=== PATIENT | male | born 1980 | race Caucasian/White ===

== ENCOUNTER → 2017-08-09 13:02 | Outpatient (CLI) | payer OTHER, SELFPAY ==
[2017-08-09 14:10] LABS: Microalbumin,Random Urine 15.9 mg/L (NO RANGE EST.); Microalbumin:Creatinine Ratio 8.5 mg/g CRE (<30 mg/g CRE)
[2017-08-09 14:22] LABS: ALB/GLOB Ratio 1.1 RATIO (0.9-2.4); AST(SGOT) 27 U/L (15-37); Alanine Aminotransfer ALT/SGPT 55 U/L (16-61); Albumin, Serum 4.2 g/dL (3.2-5.0); Alkaline Phosphatase 103 U/L (45-117); Anion Gap 6 (5-15); BUN 14 mg/dL (7-18); BUN/Creat Ratio 18.4 RATIO (10-20); Chloride 102 mmol/L (98-107); Cholesterol 187 mg/dL (200); Creatinine, Serum 0.76 mg/dL (0.70-1.30); EST Glomerular Filtration Rate 123 mL/min (>60); Est Glom Filt Rate - Afr Amer 149 mL/min (>60); Globulin 3.8 g/dL (2.2-4.2); Glucose 87 mg/dL (74-106); High Density Lipoprotein 43 mg/dL; Potassium 3.8 mmol/L (3.5-5.1); Sodium Level 138 mmol/L (136-145); Triglycerides 130 mg/dL; Very Low Density Lipoprotein 26 mg/dL (5-40)
== END ==
PROVIDERS: Family Provider Family Medicine; PCP Family Medicine; Visit Provider Family Medicine
DX: I10 Essential (primary) hypertension (principal)
CPT/HCPCS: 36415; 80053; 80061; 82043; 82570

== ENCOUNTER 2018-02-19 15:00 | Outpatient (RCR) | payer OTHER, SELFPAY ==
--- NOTE | 2018-01-30 14:59 | HP.PTEVAL_ITS ---
Patient's Visit Information AV PEREZ is a 37 year old M referred to Physical Therapy by Nica Mcgovern MD with a diagnosis of Cervical radiculopathy. Date of Evaluation: 01/30/18 Physical Therapist: James Todd - Visit Plan Frequency: 2x /Week Duration: 4 Weeks Plan: Start with distraction/mechanical traction, postural education, Tate exercises as tolerated. Progress to postural strengthening once symptoms have reduced. - Subjective Subjective: Pt. is here today for his initial evaluation with diagnosis of cervical radiculopathy radiating down his L arm. He reports having an injury ~ 8 weeks ago when lifting a large molding at work. Pt. reports seeing a chiropractor for 6 weeks or so, but did not make a huge difference. Pt. reports mornings are not too bad. He is taking 600mg of ibuprohen. He reports doing not much at home due to his neck/arm injury. He reports having improved symptoms since starting his new medications. Pt. reports no weakness, he is not dropping any objects, but has greatest difficulty with looking up and with lifting objects due to increased pain. Pt. reports N/T radiating down to forearm, but not any further. Pt. has decreased symptoms with supine lying. He is hopeful to reduce symptoms in order to complete all recreational and work activities without limitations. - Pain L UE Pain Intensity (Out of 10): 3 Pain Intensity Range: 1, 4 Comment: Tingling - Objective POSTURE: Pt. has forward head posture, rounded shoulders and decrased lumbar lordosis. Pt. has normal shoulder heights. PALPATION: Pt. has normal sensation throughout bilateral shoulders and UT. Pt. has mild tenderness with L side of cervical erector spinea. Pt. has increased pain in neck and LUE with spring testing to C3/C4. Pt. has hypombility noted there as well. No issues with rest of cervical spine. ROM: CERVICAL SPINE: normal ROM throughout, but min/mod loss with extension and increased symptoms. Pt. has increased pain with cervicle retraction as well. Pt. has normal B shoulder ROM without increase in symptoms. MMT: Pt. has full B shoulder stregth, except shoulder abduction 4+/5. Elbow flexion 4+/5, 5/5 ext. Normal wrist strength. 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- RUE- 125#, LUE 95# - Special Tests C/S Radiculapathy - Left Spurlings: Negative C/S Radiculapathy - Right Spurlings: Positive C/S Radiculapathy - Left Relief test: Positive Sharp Angelina: Negative Vertebral Artery Test: Negative Alar Ligament Test: Negative Cervical Sitting: Protrusion - Mechanical Response: No effect Cervical Sitting: Protrusion - Symptoms During Testing: No effect Cervical Sitting: Protrusion - Symptoms After Testing: No effect Cervical Sitting: Retraction - Mechanical Response: No effect Cervical Sitting: Retraction - Symptoms During Testing: Increases Cervical Sitting: Retraction - Symptoms After Testing: No worse Cervical Sitting: Retraction-Extension - Mechanical Response: No effect Cerv Sitting: Retraction-Extension - Symptoms During Testing: Increases Cerv Sitting: Retraction-Extension - Symptoms After Testing: No worse Cervical Sitting: Sidebend Right - Mechanical Response: No effect Cervical Sitting: Sidebend Right - Symptoms During Testing: No effect Cervical Sitting: Sidebend Right - Symptoms After Testing: No effect Cervical Sitting: Sidebend Left - Mechanical Response: No effect Cervical Sitting: Sidebend Left - Symptoms During Testing: No effect Cervical Sitting: Sidebend Left - Symptoms After Testing: No effect Cervical Sitting: Rotation Right - Mechanical Response: No effect Cervical Sitting: Rotation Right - Symptoms During Testing: No effect Cervical Sitting: Rotation Right - Symptoms After Testing: No effect Cervical Sitting: Rotation Left - Mechanical Response: No effect Cervical Sitting: Rotation Left - Symptoms During Testing: No effect Cervical Sitting: Rotation Left - Symptoms After Testing: No effect Cervical Sitting: Flexion - Mechanical Response: No effect Cervical Sitting: Flexion - Symptoms During Testing: No effect Cervical Sitting: Flexion - Symptoms After Testing: No effect - Goals Goal 1:: Pt. to be I with HEP. Goal Time Frame: 4-6 Weeks Goal 2:: Pt. to have increased cervical ext to normal without increase in symptoms. Goal Time Frame: 4-6 Weeks Goal 3:: Pt. to have reduced neck and arm symptoms by 50% allowing for increased tolerance to all functional mobility. Goal 4:: Pt. to demonstrate proper posture throughout therapy session indicating increased postural awareness. Goal Time Frame: 4-6 Weeks Goal 5:: Pt. to complete all recreational and work activities without increase in symptoms. Goal Time Frame: 4-6 Weeks - Rehabilitation Potential Physical Therapy Diagnosis: Pt. has signs and symptoms consistent with cervical radiculopathy effecting his LUE. Pt. has symptoms radiating to L forearm frequently, but did have decreased symptoms with distraction and supine lying. Pt. would benefit from PT to focus on postural control, cervical ROM, Tate exercises to reduce symptoms and get back to all recreational and work activities without limitations. Rehabilitation Potential: Good - Anticipated Interventions Patient/Client Instruction: Educate patient on: Condition, Plan of Care, Risk Factors, Benefits of Fitness Program For the Purpose of:: To foster healthy habits, To improve decision making, To facilitate caregiver knowledge, To improve self management, To prevent re- injury, To improve ability to perform tasks related to life management Therapeutic Exercise to Include: Strength training, Power training, Body mechanics, Postural training, Passive ROM, Active ROM, Tate Exercises, Scapular Strength/Stabilization For the Purpose of:: To decrease pain, To decrease swelling/inflammation, To increase ROM, To improve nutrient delivery to tissue, To increase oxygenation perfusion, To improve muscle performance and motor function, To improve ability to perform ADL's, To improve health of tissue, To decrease soft tissue restriction, To increase flexibility/ROM Manual Therapy Techniques to Include: Mobilization, Passive ROM, Functional dry needling, Soft tissue mobilization For the Purpose of:: To decrease pain, To decrease swelling/inflammation, To increase ROM, To improve nutrient delivery to tissue, To increase oxygenation perfusion, To improve muscle performance and motor function, To improve health of tissue, To decrease soft tissue restriction, To increase flexibility/ROM IF ES: Yes Cryotherapy (ice pack, ice massage): Yes Thermo therapy (hot pack): Yes Ultrasound (thermal/non thermal): Yes Intermittent cervical traction: Yes For the Purpose of:: To decrease pain, To decrease swelling/inflammation, To increase ROM Thank you for the opportunity to evaluate your patient. For Medicare and Medicare HMO plans, please review the plan of care and approve it. It will need to be FAXED BACK to us at [phone] for Medicare purposes. Please let me know if there are questions or concerns regarding this plan of care. Physician Signature: Date:
--- NOTE | 2018-07-12 09:17 | HP.PTDCNRP_ITS ---
HP - Discharge Summary (1) - Patient Information AV PEREZ was seen in my office for initial evaluation on 01/30/18. The following Plan of Care was established for this patient: Initial Frequency: 2x /Week Initial Duration: 4 Weeks - Anticipated Interventions Patient/Client Instruction: Educate patient on: Condition, Plan of Care, Risk Factors, Benefits of Fitness Program For the Purpose of:: To foster healthy habits, To improve decision making, To facilitate caregiver knowledge, To improve self management, To prevent re- injury, To improve ability to perform tasks related to life management Therapeutic Exercise to Include: Strength training, Power training, Body mechanics, Postural training, Passive ROM, Active ROM, Tate Exercises, Scapular Strength/Stabilization For the Purpose of:: To decrease pain, To decrease swelling/inflammation, To increase ROM, To improve nutrient delivery to tissue, To increase oxygenation perfusion, To improve muscle performance and motor function, To improve ability to perform ADL's, To improve health of tissue, To decrease soft tissue restriction, To increase flexibility/ROM Manual Therapy Techniques to Include: Mobilization, Passive ROM, Functional dry needling, Soft tissue mobilization For the Purpose of:: To decrease pain, To decrease swelling/inflammation, To increase ROM, To improve nutrient delivery to tissue, To increase oxygenation perfusion, To improve muscle performance and motor function, To improve health of tissue, To decrease soft tissue restriction, To increase flexibility/ROM IF ES: Yes Cryotherapy (ice pack, ice massage): Yes Thermo therapy (hot pack): Yes Ultrasound (thermal/non thermal): Yes Intermittent cervical traction: Yes For the Purpose of:: To decrease pain, To decrease swelling/inflammation, To increase ROM This patient was last seen in our office 02/19/18. Pertinent comments regarding their Physical therapy will appear below: Pt. was seen for his cervical radiculopathy. Pt. at our last visit, no longer had any pain. Pt. was to follow up with PT if needed. He has not been seen in several months and will be DC from PT at this point in time. At this point I will be discontinuing this patient from physical therapy. I would be happy to see this patient again in the future if found appropriate by the physician. Thank you! James Todd, VALERIE
== END 2018-02-19 19:00 | disposition home or self-care (01) ==
LOC: PT 15:00
PROVIDERS: Family Provider Family Medicine; PCP Family Medicine; Referring Provider Family Medicine; Visit Provider Family Medicine
DX: M50.122 Cervical disc disorder at C5-C6 level with radiculopathy (principal)
CPT/HCPCS: 97012; 97110; 97140; 97161

== ENCOUNTER 2018-06-18 15:33 | Emergency (ER) | payer OTHER, SELFPAY ==
[2018-06-18 15:34] VITALS: BP 137/82; PULSE 102; RESP 18; TEMP 36.1; O2SAT 97; BMI 31.1
[2018-06-18 15:50] VITALS: BP 143/95; PULSE 89; RESP 18; O2SAT 97
--- NOTE | 2018-06-18 15:59 | CT_ITS ---
STUDY: CTA OF THE BRAIN REASON FOR EXAM: Male, 37 years old. Headache, dizziness. RADIATION DOSAGE (If Supplied By Facility): CTDIvol = ( 26.65 ) mGy, DLP = ( 1120.61 ) mGycm TECHNIQUE: CT angiography was performed with a multi-detector CT scanner. Data acquisition was obtained from the skull base through the vertex following intravenous administration of Isovue 370 100mL IV. MIP images were reconstructed from the axial data set. Post-processing of the angiographic images was performed, with multiplanar reformation and 3D reconstruction. Individualized dose optimization techniques were used for this CT. COMPARISON: None. FINDINGS: CT the brain without contrast: There is no intracranial mass, hemorrhage, or acute territorial infarct. There is no osseous abnormality. There is a 2.8 x 2.8 cm mass or cystic lesion in the left maxillary sinus with lobulated margins. There is no demonstrated bone destruction. The appearance is atypical for retention cyst. Differential considerations include: Inverted papilloma, less likely fungus ball or malignancy. Normal bilateral petrous carotid arteries. Normal right cavernous carotid artery with a normal supraclinoid bifurcation. Normal left cavernous carotid artery with a normal supraclinoid bifurcation. Normal right A1 segments of the anterior cerebral artery. Normal left A1 segments of the anterior cerebral artery. Normal intact anterior communicating artery (ACOM). Normal bilateral A2 segments of the anterior cerebral arteries. Normal right M1 and M2 segments of the middle cerebral arteries, with a normal M1 bifurcation. Normal left M1 and M2 segments of the middle cerebral arteries, with a normal M1 bifurcation. There is non-visualization of the right posterior communicating artery (PCOM). Normal left posterior communicating artery (PCOM). Normal bilateral vertebral arteries. Normal basilar artery with a normal basilar bifurcation. The visualized bilateral superior cerebellar (SCA) arteries are normal. Normal bilateral P1, P2 and visualized P3 segments of the posterior cerebral arteries. There is no demonstrated aneurysm of the [place]. CT/CTA Head W/WO Contrast IMPRESSION: 1. Normal [place] without a demonstrated aneurysm or significant stenosis. 2. 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 Additional differential considerations are noted above. Electronically Signed: Adelita Medellin MD at 17:35 EDT Tel , Service support ,
[2018-06-18] MEDS: DiphenhydrAMINE 50 MG/ML Syringe 25 MG IV (16:15)
[2018-06-18] MEDS: 0.9% Normal Saline 1,000 ML 1000 ML IV (16:15)
[2018-06-18] MEDS: Metoclopramide 10 MG/2 ML Vial IV (16:16)
[2018-06-18 16:27] LABS: Absolute Lymphocyte Count 2.17 X10^3/ul (0.83-4.51); Absolute Neutrophil Count 2.4 X10^3/uL (2.0-7.7); Basophil# 0.07 X10^3/uL; Basophil% 1.3 % (0-1); Eosinophil# 0.13 X10^3/uL; Eosinophils% 2.5 % (0-5); Hematocrit 43.6 % (40-54); Hemoglobin 15.1 g/dl (13.0-16.5); Lymphocyte # 2.17 X10^3/ul (4.0); Lymphocyte % 41.4 % (19-41); Mean Corp Hgb Conc 34.6 g/gl (32-36); Mean Corpuscular Hgb 29.7 pg (27.0-32.0); Mean Corpuscular Volume 85.8 fL (80-94); Mean Platelet Vol. 9.8 fl (6.2-12.0); Monocyte# 0.47 X10^3/uL; Neutrophil # 2.39 X10^3/uL (2.7-7.7); Neutrophil % 45.6 % (47-70); Platelet Count 249 K/mm3 (150-450); RBC Distribution Width CV 12.5 % (11.6-14.6); RBC Distribution Width SD 39.2 fl (35.1-43.9); Red Blood Count 5.08 M/mm3 (4.6-6.2); White Blood Count 5.2 K/mm3 (4.4-11.0)
[2018-06-18 16:28] LABS: POSITIVE COUNT NO; POSITIVE DIFFERENTIAL NO; POSITIVE MORPHOLOGY NO
[2018-06-18 16:41] LABS: Anion Gap 8 (5-15); BUN 14 mg/dL (7-18); BUN/Creat Ratio 17.4 RATIO (10-20); Calcium,Total 8.8 mg/dL (8.5-10.1); Chloride 105 mmol/L (98-107); Creatinine, Serum 0.81 mg/dL (0.70-1.30); EST Glomerular Filtration Rate 115 mL/min (>60); Est Glom Filt Rate - Afr Amer 139 mL/min (>60); Estimated Creatinine Clearance 121.98 ml/min; Glucose 133 mg/dL (74-106); Potassium 3.7 mmol/L (3.5-5.1); Sodium Level 143 mmol/L (136-145)
[2018-06-18 17:33] VITALS: BP 135/88; PULSE 65; RESP 14; O2SAT 97
--- NOTE | 2018-06-18 18:11 | ED.DCSUM_ITS ---
- ER Visit Summary Date of Service: 06/18/18 Chief Complaint: [Headache] History of Present Illness: The patient is a 37 M [ presents to the emergency department complaint of a headache that started 5 days ago. Patient states that the headache started gradual and was mild but waxes and wanes in intensity. At times when he bends over or moves certain ways he gets this head rash but denies any real significant dizziness or vertigo. He denies any photophobia. He denies any nausea or vomiting. He has had migraines in the past but this feels very different. Patient feels like the pain is in the center of his head and kind of radiates out diffusely. He has had no fever or recent illness. He has had no recent falls. No family history of brain tumors or aneurysms. Patient has history of hypertension but states his blood pressures been well controlled and has had headaches in the past when his blood pressures been high.] Physical Examination: [HEENT-PERRLA, EOMI. Cranial nerves II through XII grossly intact. TMs clear. Mucous membranes moist. No adenopathy. Cardiovascular-regular rate and rhythm without murmur or ectopy Lungs-clear to auscultation, chest wall stable without crepitus or subcu emphysema Abdomen-normoactive bowel sounds, soft, nontender, no rebound or rigidity, no peritoneal signs. Neuro [id number] and heel quintanilla testing within normal limits, negative Romberg, negative for drift, fundi benign Extremities-intact ?4, normal range of motion, normal pulses, atraumatic] Test Results: [CTA of the brain without contrast showed no aneurysms or acute bleed. Patient was noted to have a 2.8 x 2.8 cm mass in the left maxillary sinus and in the differential is an inverted papilloma versus malignancy versus fungus ball.] Emergency Department Course and Treatment: [Patient was medicated with Reglan and Benadryl and given a liter normal same fluid bolus. His headache did not really respond to that but it is mild.] Treatment Plan: [Patient will be referred to ENT for follow-up as well as neurology.] Disposition: [Discharged home in stable condition] Impression: [Cephalgia-etiology uncertain Left maxillary sinus mass] This note was generated with [employer] dictation software. It may contain incorrect words, spelling, and punctuation that were not noted in review of the chart prior to signing ED Disposition - Plan for ED Patient: Referrals: Nica Mcgovern MD [Primary Care Provider] -
--- NOTE | 2018-06-18 18:11 | ED.DEP ---
ED Disposition - Plan for ED Patient: Instructions: ED Cephalgia Unspecified Prescriptions: Hydrocodone Bitart/Apap 5-325 [[place] 5MG-325MG] 1 tab PO Q4H PRN PRN 2 Days #10 tab PRN Reason: Pain Referrals: Nica Mcgovern MD [Primary Care Provider] - Zana Roque MD [STAFF PHYSICIAN] - 3-5 Days Gume Bautista MD [STAFF PHYSICIAN] - 3-5 Days Additional Instructions: You have a mass in your left Maxillary Sinus, please see The ENT doctor for follow up.
--- NOTE | 2018-06-18 18:14 | DCINST.ED_ITS ---
ED Disposition - Plan for ED Patient: Instructions: ED Cephalgia Unspecified Prescriptions: Hydrocodone Bitart/Apap 5-325 [[place] 5MG-325MG] 1 tab PO Q4H PRN PRN 2 Days #10 tab PRN Reason: Pain Referrals: Nica Mcgovern MD [Primary Care Provider] - Zana Roque MD [STAFF PHYSICIAN] - 3-5 Days Gume Bautista MD [STAFF PHYSICIAN] - 3-5 Days Additional Instructions: You have a mass in your left Maxillary Sinus, please see The ENT doctor for follow up.
== END 2018-06-18 18:18 | disposition home or self-care (01) ==
LOC: ED 16:03
PROVIDERS: Emergency Provider Emergency Medicine; Family Provider Family Medicine; PCP Family Medicine
DX: R51 Headache (principal); J34.89 Other specified disorders of nose and nasal sinuses; I10 Essential (primary) hypertension; Z72.0 Tobacco use; Z79.899 Other long term (current) drug therapy
CPT/HCPCS: 70496; 80048; 85025; 96361; 96374; 96375; 99283; J7030; Q9967; A4216

== ENCOUNTER 2018-08-06 06:39 | Day surgery (SDC) | payer OTHER, SELFPAY ==
[2018-08-06] VITALS (7 sets, daily range): BP systolic 89–133; BP diastolic 49–94; PULSE 88–99; RESP 14–18; TEMP 36.1–36.8; O2SAT 91–97; BMI 31.0
--- NOTE | 2018-08-06 08:15 | ETH_PTH ---
PATIENT: AV PERZE LOC: [facility] – [place] U#:[id number] AGE/SX: 37/M ROOM: RE08/06/[address]: Dr. Daniel Ledezma MD : 1980 BED: DIS: 08/06/2018 SPEC #: [id number] RECD: 08/06/18 13:44 STATUS: LEA BENIGNO #: [id number] AMALIA: 08/06/18 08:[address]: Daniel Ledezma DEPT: SURGICAL PATHOLOGY RECD BY: Alex Henderson ENTERED: 08/06/18 13:56 SP TYPE: ETH TISS OTHR DR: Dr. Nica Mcgovern MD Tissues: A - Ethmoid sinus, NOS B - Ethmoid sinus, NOS C - Ethmoid sinus, NOS Procedures: Decalcification bone/plaque Surgery Specimen Level IV HEADER OPERATION: Rhinoplasty; endoscopic, intranasal ethmoid, maxillary antrostomy, Navigation PRE-OP DIAGNOSIS: Deviated nasal septum, acute maxillary sinusitis, hypertrophy of nasal turbinates TISSUE SUBMITTED: A - Left sinus mass, B - Left sinus contents, C - Right sinus contents MICROSCOPIC DIAGNOSIS A. Left sinus mass, biopsy: Fragments of inverted papilloma (schneiderian papilloma). Fragments of respiratory mucosa with chronic inflammation and bone. B. Left sinus contents: Fragments of inverted papilloma (schneiderian papilloma). Fragments of respiratory mucosa with chronic inflammation and bone. C. Right sinus contents: Fragments of respiratory mucosa and turbinate with chronic inflammation and bone. SJ:alan 08/09/18 MICROSCOPIC DESCRIPTION Slides are reviewed. GROSS DESCRIPTION A - Received in fixative is one container labeled with the patient's name and designated left sinus mass. The specimen consists of multiple pieces of lehman-pink soft tissue that in aggregate measure 5 x 4.5 x 1.2 cm. A few of the larger pieces are bisected. The entire specimen is submitted in four cassettes. B - Received in fixative is one container labeled with the patient's name and designated left sinus contents. The specimen consists of multiple irregular fragments of pink soft tissue mixed with fragments of bone that in aggregate measure 5 x 3 x 0.3 cm. The entire specimen is submitted in two cassettes after decalcification. C - Received in fixative is one container labeled with the patient's name and designated right sinus contents. The specimen consists of multiple irregular fragments of lehman-pink soft tissue including turbinate and fragments of bone that in aggregate measure 5 x 3 x 0.3 cm. The entire specimen is submitted in two cassettes after decalcification. / SMITH:alan 08/06/18 TC:1 CPT: 59919 x3, 13980 x2
[2018-08-06] MEDS: Oxymetazoline 0.05% 1 SPRAY SPRAY.BTL 15 SPRAY ×2 (08:42→11:59)
[2018-08-06] MEDS: Mupirocin Ointment 22gm Tube 1 APPLIC (12:00)
--- NOTE | 2018-08-06 13:08 | PCM.DC ---
You will use the following diet at home:: No restrictions Discharge Activity: May not drive while taking narcotic pain medications. Call your doctor if your incision/area has: Sudden Increased Bleeding Additional Dressing/Incision Instructions:: irrigate both nostrils 5 times / day with nasal saline spray. sleep with head of bed elevated for 1 week. ice to cheek bones 20 mins of every hour while awake for 48 hours. mupirocin ointment to nasal incisions twice daily. do not get the bridge of your nose wet until the morning of your follow up appointment, then get it very wet so it comes off in clinic. Allergies/Adverse Reactions: Allergies No Known Allergies Allergy (Verified 07/23/18 11:09) Medications to take at Discharge Lisinopril/Hydrochlorothiazide [Lisinopril-Hctz 10-12.5 mg Tab] 1 each PO DAILY 06/18/18 Primary Care Physician: Nica Mcgovern MD [Primary Care Provider] - Test Results: Test results from this visit will be discussed in further detail at your follow-up appointment, if applicable. Please Follow Up With: Gunnar Ledezma MD When: 1 week
--- NOTE | 2018-08-06 13:11 | DCINST_ITS ---
You will use the following diet at home:: No restrictions Discharge Activity: May not drive while taking narcotic pain medications. Call your doctor if your incision/area has: Sudden Increased Bleeding Additional Dressing/Incision Instructions:: irrigate both nostrils 5 times / day with nasal saline spray. sleep with head of bed elevated for 1 week. ice to cheek bones 20 mins of every hour while awake for 48 hours. mupirocin ointment to nasal incisions twice daily. do not get the bridge of your nose wet until the morning of your follow up appointment, then get it very wet so it comes off in clinic. Allergies/Adverse Reactions: Allergies No Known Allergies Allergy (Verified 07/23/18 11:09) Medications to take at Discharge Lisinopril/Hydrochlorothiazide [Lisinopril-Hctz 10-12.5 mg Tab] 1 each PO DAILY 06/18/18 Primary Care Physician: Nica Mcgovern MD [Primary Care Provider] - Test Results: Test results from this visit will be discussed in further detail at your follow- up appointment, if applicable. Please Follow Up With: Gunnar Ledezma MD When: 1 week
--- NOTE | 2018-08-06 14:19 | PCM.OPRPT ---
Problem List (1) Other chronic sinusitis Status: Chronic (2) Nasal congestion Status: Chronic (3) Hypertrophy of inferior nasal turbinate Status: Chronic (4) Nasal septal deviation Status: Chronic (5) Nasal bone fracture Status: Chronic Report of Operation Date of Procedure: 08/06/18 Pre-Operative Diagnosis: 1. nasal congestion. 2. inferior turbinate hypertrophy. 3. nasal septal deviation. 4. other chronic sinusitis. 5. sinonasal mass. 6. nasal bone fracture. 7. internal nasal valve dysfunction Post-Operative Diagnosis: 1. nasal congestion. 2. inferior turbinate hypertrophy. 3. nasal septal deviation. 4. other chronic sinusitis. 5. sinonasal mass. 6. nasal bone fracture. 7. internal nasal valve dysfunction Surgery/Procedure Performed:: 1. septoplasty. 2. submucous resection inferior turbinates. 3. open treatment nasal bone fracture. 4. endoscopic maxillary antrostomy with tissue removal, right and left. 5. endoscopic total ethmoidectomy with removal tissue of frontal sinus tract. 6. removal extensive polyps. 7. computer-assisted navigation Type of Anesthesia:: General Description of Procedure: on the day of the procedure, after appropriate informed consent was obtained, the patient was brought to the operating room and placed in supine position on the operating table. he was placed under general endotracheal anesthesia by the anesthesiologist. the endotracheal tube was secured, tegaderm was placed over the eyes. the table was rotated 90 degrees toward the surgeon. the nose was decongested with oxymetazoline and injected with lidocaine/epinephrine. an inverted v columellar incision was made with a klawock blade. this traversed superiorly into marginal incisions on the right and left with an iris scizzor and three point retraction. the right and left scroll region and upper lateral cartilages were skeletonized. the entire nose suffered a severe crush injury and all contents were compressed posteriorly. the medial crura were lateralized and the anterior septal angle was found with the bovie. submucoperichondrial flaps were made with a roman elevator on the right then left; posteriorly to the bony cartilaginous junction and inferiorly to the maxillary crest. the septum was fractured in numerous places including the bony/cartilaginous junction as well as discontinuity with the maxillary crest. a D knife and roman elevator was used to preserve a 1cm area of septal cartilage off of the keystone area and the remainder of the cartilaginous septum was removed and saved. the right and left upper lateral cartilages were disarticulated from the nasal septum with a #15 blade. deviated portions of the perpendicular plate of the ethmoid bone and vomer were removed using a leonor josue. the junction of the right and left nasal dorsum and lateral nasal sidewall was injected with lidocaine/epinephrine. a klawock blade was used to make bilateral 2mm incisions. left medial, intermediate and lateral osteotomies were made with a 2mm osteotome. right medial, intermediate and lateral osteotomies were made with a 2mm osteotome. given the patient's previous trauma, the nasal dorsum was compressed posteriorly. the nasal bones were brought anteromedially to correct this. the harvested septum was severely fractured in numerous places in an accordion fashion. these joints were cut and all pieces were sewn onto a PDS plate with 4-0 PDS. the reconstructed septum was placed as a left internal claim adjuster graft between the septal remnant and left upper lateral cartilage. a 8mm x 2mm right claim adjuster graft was fashioned from harvested cartilage. both were sutured into place using 4-0 PDS. the anterior septal reconstruction was also sutured to the maxillary crest. the submucoperichondrial flaps were brought together with numerous 4-0 chromic quilting sutures, several which incorporated the septal reconstruction. the head of the right and left turbinates were injected with lidocaine/epinephrine. the head of the left inferior turbinate was incised with a #15 blade, dissected using a roman elevator, reduced using suction electrocautery and outfractured using a boies elevator. the head of the right inferior turbinate was incised with a #15 blade, dissected using a roman elevator, reduced using suction electrocautery and outfractured using a boies elevator. the nasal dorsal incisions were closed with 5-0 fast gut. the inverted v columellar incisions and marginal incisions were closed with 7-0 vicryl and 4-0 chromic. the nose was decongested with oxymetazoline-soaked pledgets. a zero degree endoscope was used to visualize the nasal cavity. the superior attachment of the middle turbinates were injected with lidocaine/epinephrine. the [employer] navigation was set up. the left side was visualized. the middle turbinate was medialized. an uncinectomy/antrostomy was made with a roman elevator. immediately after the left maxillary sinus was entered, a fluffy mass extruced from the antrostomy. this was large, and was removed in piece-meal fashion using an upgoing blakesley. its exact anchor point was not directly visualized, but it appeared to be coming from either the area of the sphenopalatine artery or from inside the sinus proper. the ethmoid bulla was entered bluntly with the suction and a total ethmoidectomy was performed with a combination of curette and upgoing blakesley. this was taken superior toward the skull base and laterally toward the lamina. a frontal sinus seeker was used to probe the frontal recess and contents in this area were evacuated. a stankewicz maneuver was performed and no laminar defect was noted. the area was irrigated with copious amounts of saline and hemostasis was observed. floseal was placed. the right side was visualized. the middle turbinate was medialized. an uncinectomy/antrostomy was made with a roman elevator. a domenic was used to take down the uncinate and contents were evacuated. the ethmoid bulla was entered bluntly with the suction and a total ethmoidectomy was performed with a combination of curette and upgoing blakesley. this was taken superior toward the skull base and laterally toward the lamina. a frontal sinus seeker was used to probe the frontal recess and contents in this area were evacuated. a stankewicz maneuver was performed and no laminar defect was noted. the area was irrigated with copious amounts of saline and hemostasis was observed. floseal was placed. person splints were sutured into place and a dorsal nasal splint was placed. a nasogastric tube was inserted orally and contents were evacuated. the patient was awoken from anesthesia and transferred to the PACU in stable condition.
--- NOTE | 2018-08-06 14:24 | OP.PCM_ITS ---
Problem List (1) Other chronic sinusitis Status: Chronic (2) Nasal congestion Status: Chronic (3) Hypertrophy of inferior nasal turbinate Status: Chronic (4) Nasal septal deviation Status: Chronic (5) Nasal bone fracture Status: Chronic Report of Operation Date of Procedure: 08/06/18 Pre-Operative Diagnosis: 1. nasal congestion. 2. inferior turbinate hypertrophy. 3. nasal septal deviation. 4. other chronic sinusitis. 5. sinonasal mass. 6. nasal bone fracture. 7. internal nasal valve dysfunction Post-Operative Diagnosis: 1. nasal congestion. 2. inferior turbinate hypertrophy. 3. nasal septal deviation. 4. other chronic sinusitis. 5. sinonasal mass. 6. nasal bone fracture. 7. internal nasal valve dysfunction Surgery/Procedure Performed:: 1. septoplasty. 2. submucous resection inferior turbinates. 3. open treatment nasal bone fracture. 4. endoscopic maxillary antrostomy with tissue removal, right and left. 5. endoscopic total ethmoidectomy with removal tissue of frontal sinus tract. 6. removal extensive polyps. 7. computer-assisted navigation Type of Anesthesia:: General Description of Procedure: on the day of the procedure, after appropriate informed consent was obtained, the patient was brought to the operating room and placed in supine position on the operating table. he was placed under general endotracheal anesthesia by the anesthesiologist. the endotracheal tube was secured, tegaderm was placed over the eyes. the table was rotated 90 degrees toward the surgeon. the nose was decongested with oxymetazoline and injected with lidocaine/epinephrine. an inverted v columellar incision was made with a qagan tayagungin blade. this traversed superiorly into marginal incisions on the right and left with an iris scizzor and three point retraction. the right and left scroll region and upper lateral cartilages were skeletonized. the entire nose suffered a severe crush injury and all contents were compressed posteriorly. the medial crura were lateralized and the anterior septal angle was found with the bovie. submucoperichondrial flaps were made with a roman elevator on the right then left; posteriorly to the bony cartilaginous junction and inferiorly to the maxillary crest. the septum was fractured in numerous places including the bony/cartilaginous junction as well as discontinuity with the maxillary crest. a D knife and roman elevator was used to preserve a 1cm area of septal cartilage off of the keystone area and the remainder of the cartilaginous septum was removed and saved. the right and left upper lateral cartilages were disarticulated from the nasal septum with a #15 blade. deviated portions of the perpendicular plate of the ethmoid bone and vomer were removed using a leonor josue. the junction of the right and left nasal dorsum and lateral nasal sidewall was injected with lidocaine/epinephrine. a qagan tayagungin blade was used to make bilateral 2mm incisions. left medial, intermediate and lateral osteotomies were made with a 2mm osteotome. right medial, intermediate and lateral osteotomies were made with a 2mm osteotome. given the patient's previous trauma, the nasal dorsum was compressed posteriorly. the nasal bones were brought anteromedially to correct this. the harvested septum was severely fractured in numerous places in an accordion fashion. these joints were cut and all pieces were sewn onto a PDS plate with 4-0 PDS. the reconstructed septum was placed as a left internal reinforcing steel worker graft between the septal remnant and left upper lateral cartilage. a 8mm x 2mm right reinforcing steel worker graft was fashioned from harvested cartilage. both were sutured into place using 4-0 PDS. the anterior septal reconstruction was also sutured to the maxillary crest. the submucoperichondrial flaps were brought together with numerous 4-0 chromic quilting sutures, several which incorporated the septal reconstruction. the head of the right and left turbinates were injected with lidocaine/epinephrine. the head of the left inferior turbinate was incised with a #15 blade, dissected using a roman elevator, reduced using suction electrocautery and outfractured using a boies elevator. the head of the right inferior turbinate was incised with a #15 blade, dissected using a roman elevator, reduced using suction electrocautery and outfractured using a boies elevator. the nasal dorsal incisions were closed with 5-0 fast gut. the inverted v columellar incisions and marginal incisions were closed with 7-0 vicryl and 4-0 chromic. the nose was decongested with oxymetazoline-soaked pledgets. a zero degree endoscope was used to visualize the nasal cavity. the superior attachment of the middle turbinates were injected with lidocaine/epinephrine. the [employer] navigation was set up. the left side was visualized. the middle turbinate was medialized. an uncinectomy/antrostomy was made with a roman elevator. immediately after the left maxillary sinus was entered, a fluffy mass extruced from the antrostomy. this was large, and was removed in piece-meal fashion using an upgoing blakesley. its exact anchor point was not directly visualized, but it appeared to be coming from either the area of the sphenopalatine artery or from inside the sinus proper. the ethmoid bulla was entered bluntly with the suction and a total ethmoidectomy was performed with a combination of curette and upgoing blakesley. this was taken superior toward the skull base and laterally toward the lamina. a frontal sinus seeker was used to probe the frontal recess and contents in this area were evacuated. a stankewicz maneuver was performed and no laminar defect was noted. the area was irrigated with copious amounts of saline and hemostasis was observed. floseal was placed. the right side was visualized. the middle turbinate was medialized. an uncinectomy/antrostomy was made with a roman elevator. a domenic was used to take down the uncinate and contents were evacuated. the ethmoid bulla was enter ed bluntly with the suction and a total ethmoidectomy was performed with a combination of curette and upgoing blakesley. this was taken superior toward the skull base and laterally toward the lamina. a frontal sinus seeker was used to probe the frontal recess and contents in this area were evacuated. a stankewicz maneuver was performed and no laminar defect was noted. the area was irrigated with copious amounts of saline and hemostasis was observed. floseal was placed. person splints were sutured into place and a dorsal nasal splint was placed. a nasogastric tube was inserted orally and contents were evacuated. the patient was awoken from anesthesia and transferred to the PACU in stable condition.
[2018-08-06] MEDS: HYDROcodone Bitartrate/Apap 5/325 Tablet PO (14:56)
[2018-08-06] MEDS: Scopolamine 1mg/72hr Patch 1 PATCH TD (15:48)
== END 2018-08-06 16:33 | disposition home or self-care (01) ==
LOC: SDC 06:40 → AC 06:41
PROVIDERS: Family Provider Family Medicine; PCP Family Medicine; Referring Provider Otolaryngology; Visit Provider Otolaryngology
PROC: (CPT 30140; principal; 2018-08-06 07:45)
PROC: (CPT 30140; 2018-08-06 07:45)
DX: D14.0 Benign neoplasm of middle ear, nasal cavity and accessory sinuses (principal); J34.2 Deviated nasal septum; J34.3 Hypertrophy of nasal turbinates; S02.2XXA Fracture of nasal bones, initial encounter for closed fracture; J32.9 Chronic sinusitis, unspecified; R09.81 Nasal congestion; I10 Essential (primary) hypertension; Z87.891 Personal history of nicotine dependence; Z79.899 Other long term (current) drug therapy; X58.XXXA Exposure to other specified factors, initial encounter; Y93.9 Activity, unspecified; Y92.89 Other specified places as the place of occurrence of the external cause; Y99.8 Other external cause status
CPT/HCPCS: 30140; 30520; 31255; 31267; 88305; 88311; J7120; J2405

== ENCOUNTER → 2018-09-26 | Outpatient (CLI) | payer OTHER, SELFPAY ==
[2018-08-06 07:03] VITALS: BMI 31.0
--- NOTE | 2018-09-26 12:56 | CT_ITS ---
STUDY: CT BRAIN AND SINUSES WITHOUT CONTRAST REASON FOR EXAM: Male, 37 years old. Hypertension status post left maxillary sinus surgery RADIATION DOSAGE (If Supplied By Facility): CTDIvol = ( 33.06 ) mGy, DLP = ( 759.47 ) mGycm TECHNIQUE: Transaxial CT imaging of the brain was performed without administration of contrast. Individualized dose optimization techniques were used for this CT. COMPARISON: No relevant priors. FINDINGS: CT BRAIN Normal soft tissue structures. Normal calvarium. Normal size ventricles and extra-axial spaces for the patient's age. Normal white matter tracts of the cerebral hemispheres. Normal basal ganglia and thalami. Normal brainstem. Normal cerebellum. There is no intracranial hemorrhage. There are no findings of an acute ischemic infarction. CT SINUSES Post Surgical Changes: None. Frontal Sinus and Recess: Normal aeration without mucosal inflammatory disease. Ethmoidal Sinuses: Moderate mucosal thickening bilaterally without air-fluid levels Maxillary Sinuses: Moderate to severe diffuse mucosal thickening of right maxillary sinus without air-fluid level. Minor mucosal thickening in the left maxillary sinus. Status post bilateral uncinatectomy Ostiomeatal Complex: Clear. Sphenoid Sinus: Normal aeration without mucosal inflammatory disease. Sphenoethmoidal Recess: Clear. Nasal Turbinate (Right): Middle Turbinate (Right): Resected Middle Turbinate (Left): Normal. Inferior Turbinate (Right): Normal. Inferior Turbinate (Left): Normal. Nasal Septum: Minor septal deviation towards the right Nasal Airway: Clear. Cribiform Plate / Anterior Cranial Fossa: Normal. Orbits: Normal. CT/Sinus/Facial Bone IMPRESSION: Normal enhanced CT scan of the brain Postsurgical changes. Bilateral maxillary and ethmoid sinus disease likely chronic Electronically Signed: Alan Aleman MD at 16:55 EDT , Service support ,
== END | disposition home or self-care (01) ==
LOC: CT 12:55
PROVIDERS: Family Provider Family Medicine; PCP Family Medicine; Referring Provider Otolaryngology; Visit Provider Otolaryngology
DX: J32.9 Chronic sinusitis, unspecified (principal)
CPT/HCPCS: 70486

== ENCOUNTER 2019-03-04 06:54 | Day surgery (SDC) | payer OTHER, SELFPAY ==
[2018-08-06 07:03] VITALS: BMI 31.0
[2019-03-04] VITALS (7 sets, daily range): BP systolic 104–124; BP diastolic 68–86; PULSE 54–80; RESP 16–60; TEMP 36.2–36.6; O2SAT 16–99; BMI 32.3
[2019-03-04 07:31] LABS: Anion Gap 7 (5-15); BUN 15 mg/dL (7-18); BUN/Creat Ratio 19.4 RATIO (10-20); Calcium,Total 9.4 mg/dL (8.5-10.1); Chloride 104 mmol/L (98-107); Creatinine, Serum 0.77 mg/dL (0.70-1.30); EST Glomerular Filtration Rate 120 mL/min (>60); Est Glom Filt Rate - Afr Amer 146 mL/min (>60); Glucose 107 mg/dL (74-106); Sodium Level 138 mmol/L (136-145)
[2019-03-04] MEDS: Lactated Ringers 1,000 ML 100 ML IV ×2 (07:34→11:59)
--- NOTE | 2019-03-04 08:30 | ETH_PTH ---
PATIENT: AV PEREZ LOC: [facility] [place] U#:[id number] AGE/SX: 38/M ROOM: RE03/04/[address]: Dr. Daniel Ledezma MD : 1980 BED: DIS: 03/04/2019 SPEC #: [id number] RECD: 03/04/19 12:28 STATUS: LEA BENIGNO #: [id number] AMALIA: 03/04/19 08:[address]: Daniel Ledezma DEPT: SURGICAL PATHOLOGY RECD BY: Elsa Wright ENTERED: 03/04/19 13:14 SP TYPE: ETH TISS OTHR DR: Dr. Nica Mcgovern MD Tissues: Ethmoid sinus, NOS Procedures: Decalcification bone/plaque Surgery Specimen Level IV HEADER OPERATION: Medial maxillectomy PRE-OP DIAGNOSIS: Inverted papilloma, chronic pansinusitis TISSUE SUBMITTED: Left sinus contents MICROSCOPIC DIAGNOSIS Left sinus contents: Fragments of respiratory mucosa with chronic inflammation, bone and turbinates. See comment. SMITH:alan 03/12/19 COMMENT Changes consistent with inverted papilloma are not seen. Please make reference to previous specimen ([id number]) left sinus mass, biopsy with diagnosis of fragments of inverted papilloma. MICROSCOPIC DESCRIPTION Slides are reviewed. GROSS DESCRIPTION Received in fixative is one container labeled with the patient's name and designated left sinus contents. The specimen consists of multiple irregular fragments of lehman-pink soft tissue including fragments of bone and cartilage that in aggregate measure 5 x 3 x 0.3 cm. The entire specimen is submitted in two cassettes after decalcification. / SMITH:alan 03/04/19 TC:3 [facility]: [id number], [id number]
--- NOTE | 2019-03-04 08:36 | DCINST_ITS ---
You will use the following diet at home:: No restrictions Discharge Activity: May not drive while taking narcotic pain medications. Call your doctor if your incision/area has: Increased Pain/ Swelling, Foul Smelling Discharge Allergies/Adverse Reactions: Allergies No Known Allergies Allergy (Verified 02/11/19 12:56) Medications to take at Discharge Lisinopril/Hydrochlorothiazide [Lisinopril-Hctz 10-12.5 mg Tab] 1 each PO DAILY 06/18/18 Primary Care Physician: Nica Mcgovern MD [Primary Care Provider] - Test Results: Test results from this visit will be discussed in further detail at your follow- up appointment, if applicable. Please Follow Up With: Gunnar Ledezma MD When: 1 week
--- NOTE | 2019-03-04 08:37 | PCM.OPRPT ---
Problem List (1) Inverted papilloma Status: Chronic (2) Chronic pansinusitis Status: Chronic Report of Operation Date of Procedure: 03/04/19 Pre-Operative Diagnosis: inverted papilloma, left maxillary sinus Post-Operative Diagnosis: inverted papilloma, left maxillary sinus Surgery/Procedure Performed:: 1. medial maxillectomy, left. 2. endoscopic anterior ethmoidectomy. 3. CT image-guided navigation Type of Anesthesia:: General Description of Procedure: on the day of the procedure, after appropriate informed consent was obtained, the patient was brought to the operating room and placed in supine position on the operating table. he was placed under general endotracheal anesthesia by the anesthesiologist. the endotracheal tube was secured. the bilateral nasal cavities were decongested with oxymetazoline soaked pledgets. the floor of the left nasal cavity and inferior turbinate were injected with oxymetazoline soaked pledgets. the image guidance navigation was set up using facial landmarks. this was confirmed for accuracy. the zero degree endoscope was inserted into the right nasal cavity. using an upgoing blakesley and the microdebrider, an anterior ethmoidectomy was performed on residual ethmoid cells. a stankewicz maneuver was performed and no laminar defect was noted. the zero degree endoscope was inserted into the left nasal cavity. using an upgoing blakesley and the microdebrider, an anterior ethmoidectomy was performed on residual ethmoid cells. a stankewicz maneuver was performed and no laminar defect was noted. a crile was placed on the medial portion of the left inferior turbinate. after 2 minutes, the crushed area was resected with turbinate scizzors. this included just posterior of the head of the inferior turbinate to the mid portion of the antrostomy. a roman elevator was used to incise the floor mucosa at the posterior portion of the antrostomy as well as anterior to hasner's valve. the valve was located and preserved. a 15 blade was used to connect the incisions creating a medially based flap, which was retracted against the septum. the superior portion of the medial maxillary wall was removed with a alice cut. the sono pet was used to remove the medial bony wall from posterior to hasners valve to just anterior to the posterior maxillary sinus wall. a back biter was used to remove anterior/inferior tissue, inferior to hasners valve. the sono pet was then used to complete the bony portion of the medial maxillectomy with care not to extend inferiorly into the palate. a 70 degree endoscope was used to evaluate the left maxillary sinus. no mucosal irregularities or any nests / stumps of tumor cells were seen. the flap was replaced over the defect. hemostasis was achieved with suction cautery. surgicel was placed over the anterior and posterior inferior turbinate stumps. a merocel was placed in the left nasal cavity. the patient was awoken from anesthesia and transferred to the PACU in stable condition.
[2019-03-04] MEDS: Oxymetazoline 0.05% 1 SPRAY SPRAY.BTL 15 SPRAY (09:22)
[2019-03-04] MEDS: Petrolatum,White 3.75GM OPTH.TUBE 1 APPLIC OPHTHALMIC (09:36)
[2019-03-04] MEDS: HYDROcodone Bitartrate/Apap 5/325 Tablet PO (12:51)
== END 2019-03-04 13:20 | disposition home or self-care (01) ==
LOC: SDC 06:58 → AC 06:59
PROVIDERS: Family Provider Family Medicine; PCP Family Medicine; Referring Provider Otolaryngology; Visit Provider Otolaryngology
PROC: (CPT 30520; principal; 2019-03-04 08:15)
DX: D14.0 Benign neoplasm of middle ear, nasal cavity and accessory sinuses (principal); J32.4 Chronic pansinusitis; I10 Essential (primary) hypertension; Z79.899 Other long term (current) drug therapy; Z87.891 Personal history of nicotine dependence
CPT/HCPCS: 00160; 31254; 31267; 80048; 88305; 88311; J7120

== ENCOUNTER → 2020-04-05 10:16 | Outpatient (CLI) | payer OTHER, SELFPAY ==
[2019-03-04 07:23] VITALS: BMI 32.3
[2020-04-05 10:38] LABS: Absolute Lymphocyte Count 2.87 X10^3/uL (0.83-4.51); Absolute Neutrophil Count 3.1 X10^3/uL (2.0-7.7); Basophil# 0.06 X10^3/uL; Basophil% 0.9 % (0-1); Eosinophil# 0.11 X10^3/uL; Eosinophils% 1.6 % (0-5); Hematocrit 44.8 % (40-54); Hemoglobin 16.1 g/dL (13.0-16.5); Lymphocyte # 2.87 X10^3/ul (4.0); Lymphocyte % 41.9 % (19-41); Mean Corp Hgb Conc 35.9 g/dL (32-36); Mean Corpuscular Hgb 32.5 pg (27.0-32.0); Mean Corpuscular Volume 90.5 fL (80-94); Mean Platelet Vol. 9.8 fl (6.2-12.0); Monocyte# 0.74 X10^3/uL; Monocyte% 10.8 % (0-10); NRBC Flagged by Analyzer 0 % (0-5); Neutrophil # 3.05 X10^3/uL (2.7-7.7); Neutrophil % 44.5 % (47-70); Platelet Count 259 K/mm3 (150-450); RBC Distribution Width CV 13.7 % (11.6-14.6); RBC Distribution Width SD 40.1 fl (35.1-43.9); Red Blood Count 4.95 M/mm3 (4.6-6.2); White Blood Count 6.9 K/mm3 (4.4-11.0)
[2020-04-05 11:08] LABS: ALB/GLOB Ratio 1.1 RATIO (0.9-2.4); AST(SGOT) 25 U/L (15-37); Alanine Aminotransfer ALT/SGPT 67 U/L (16-61); Albumin, Serum 4.1 g/dL (3.2-5.0); Alkaline Phosphatase 114 U/L (45-117); Anion Gap 3 (5-15); BUN 15 mg/dL (7-18); BUN/Creat Ratio 18.2 RATIO (10-20); Calcium,Total 9.2 mg/dL (8.5-10.1); Chloride 106 mmol/L (98-107); Cholesterol 229 mg/dL (200); Creatinine, Serum 0.83 mg/dL (0.70-1.30); EST Glomerular Filtration Rate 111 mL/min (>60); Est Glom Filt Rate - Afr Amer 134 mL/min (>60); Globulin 3.9 g/dL (2.2-4.2); Glucose 98 mg/dL (74-106); High Density Lipoprotein 49 mg/dL; Potassium 4.4 mmol/L (3.5-5.1); Sodium Level 139 mmol/L (136-145); Triglycerides 110 mg/dL; Very Low Density Lipoprotein 22 mg/dL (5-40)
== END ==
PROVIDERS: PCP Family Medicine; Referring Provider Family Medicine; Visit Provider Family Medicine
DX: I10 Essential (primary) hypertension (principal); R07.9 Chest pain, unspecified
CPT/HCPCS: 36415; 80053; 80061; 85025

== ENCOUNTER → 2020-05-05 16:41 | Outpatient (CLI) | payer OTHER, SELFPAY ==
[2020-05-05 16:01] VITALS: BMI 32.8
[2020-05-05 17:50] LABS: D-Dimer Quantitative (DVT/PE) 0.42 FEU/ug/m (0.27-0.49)
== END ==
PROVIDERS: PCP Family Medicine; Referring Provider Internal Medicine Cardiovascular Disease; Visit Provider Internal Medicine Cardiovascular Disease
DX: R07.9 Chest pain, unspecified (principal)
CPT/HCPCS: 36415; 85379

== ENCOUNTER → 2020-05-17 10:43 | Outpatient (CLI) | payer OTHER, SELFPAY ==
[2020-05-05 16:01] VITALS: BMI 32.8
--- NOTE | 2020-05-17 10:45 | ECHOD_ITS ---
Reason For Study: CHEST PAIN Procedure This was a 2D Doppler, Color Flow transthoracic echocardiogram. Exam performed in department. Left Ventricle Normal LV size. Left ventricular systolic function is normal. The estimated ejection fraction is 60 %. Normal diastology for age. No regional wall motion abnormalities noted. Right Ventricle Normal RV size. Normal systolic function. Atria Normal left atrium. Normal right atrium. Mitral Valve Normal mitral valve. Tricuspid Valve Normal tricuspid valve. Aortic Valve Normal aortic valve. Trisinus/trileaflet aortic valve. Pulmonic Valve Normal pulmonic valve. Great Vessels Normal aortic root. The pulmonary artery is normal size. Normal inferior vena cava. Pericardium/Pleural No pericardial effusion. MMode/2D Measurements & Calculations LVIDd: 4.7 cm IVSd: 1.2 cm Ao root diam: 2.6 cm LVIDs: 3.3 cm LVPWd: 1.0 cm RVDd: 3.7 cm FS: 29.2 % LAV(MOD-bp): 34.7 ml LA A4 area: 13.9 cm2 LA dimension(2D): 3.8 cm LAV(MOD-bp) Indexed: 16.2 ml/m2 LAV(MOD-sp2): 35.5 ml LAV(MOD-sp4): 34.7 ml RA A4 area: 14.5 cm2 Time Measurements MV dec time: 0.21 sec Doppler Measurements & Calculations MV E max maksim: 76.4 cm/sec Lat Peak E' Maksim: 11.7 cm/sec Med Peak E' Maksim: 8.4 cm/sec MV A max maksim: 52.7 cm/sec E/E' lat: 6.5 E/E' med: 9.1 MV E/A: 1.5 Ao V2 max: 134.9 cm/sec LV V1 max: 116.7 cm/sec PA V2 max: 125.6 cm/sec Ao max P.3 mmHg LV V1 max P.4 mmHg Interpretation Summary Normal LV size. Left ventricular systolic function is normal. The estimated ejection fraction is 60 %. Normal diastology for age. Ordering Physician: Lester Fierro Referring Physician: Nica Mcgovern Performed By: Rama Burkett, VIMAL, RVT
--- NOTE | 2020-05-17 11:51 | CT_ITS ---
STUDY: CT CHEST WITH CONTRAST REASON FOR EXAM: Male, 39 years old. CHEST PAIN RADIATION DOSAGE (If Supplied By Facility): CTDIvol = ( 14.56 ) mGy, DLP = ( 552.33 ) mGycm TECHNIQUE: Transaxial imaging was performed following intravenous administration of IV 100mL Isovue-300. Multiplanar coronal and sagittal images were reformatted. Individualized dose optimization techniques were used for this CT. COMPARISON: None. FINDINGS: Calcified granuloma in the right lung apex. Minimal atelectasis and/or scarring in the anterior aspect of the left lower lobe. There is no demonstrated pleural abnormality. Normal heart and pericardium. Normal mediastinum. Normal hilar regions. Normal enhanced pulmonary arteries. Normal aorta arch and descending thoracic aorta. There are mild degenerative changes of the thoracic spine. Fatty infiltration of the liver. CT/Chest WITH Contrast IMPRESSION: Minimal atelectasis and/or scarring in the anterior aspect of the left lower lobe. Fatty infiltration of the liver. Electronically Signed: Zelalem Phan MD at 12:59 EST , Service support ,
--- NOTE | 2020-05-17 16:14 | STRESSREP ---
Stress Test Report Exercise stress test. 39-year-old man with a history of chest pain or shortness of breath. Medications lisinopril hydrochlorothiazide. Stress test. Resting EKG demonstrates normal sinus rhythm with a rate of 70 bpm normal intervals are noted resting blood pressure is 128/70 mmHg. The patient exercised according to the regular [employer] protocol for a total duration of 6 minutes and 30 seconds. The maximum heart rate attained was 160 bpm which was 87% of max impacted heart rate the maximum workload was 7.7 metabolic equivalents. At rest there were no ST or T wave changes noted to suggest ischemia at peak exercise upsloping ST changes were noted we did not meet the criteria for ischemia. No clinical angina was noted. No arrhythmias were present. The test was terminated due to leg discomfort. The peak blood pressure was 160/72. Conclusion: Exercise stress test with no EKG criteria for ischemia at a moderate workload. No arrhythmias noted. Mild functional impairment.
== END ==
PROVIDERS: PCP Family Medicine; Referring Provider Internal Medicine Cardiovascular Disease; Visit Provider Internal Medicine Cardiovascular Disease
DX: R07.9 Chest pain, unspecified (principal)
CPT/HCPCS: 71260; 93017; 93306; Q9967

== ENCOUNTER → 2020-11-18 | Outpatient (CLI) | payer OTHER, SELFPAY ==
[2020-05-05 16:01] VITALS: BMI 32.8
[2020-11-18 19:02] LABS: Probe Check PASS; Specimen Processing Control PASS
== END | disposition home or self-care (01) ==
PROVIDERS: PCP Family Medicine; Visit Provider Family Medicine
DX: Z20.828 Contact with and (suspected) exposure to other viral communicable diseases (principal)
CPT/HCPCS: 87635; U0005; U0003

== ENCOUNTER → 2020-12-18 08:12 | Outpatient (CLI) | payer OTHER, SELFPAY | PROVIDERS: PCP Family Medicine; Referring Provider Physician Assistant Surgical; Visit Provider Physician Assistant Surgical | DX: R51.9 Headache, unspecified (principal); G89.29 Other chronic pain | CPT/HCPCS: 87635; U0005; U0003 ==

== ENCOUNTER 2021-04-20 07:59 | Outpatient (CLI) | payer OTHER, SELFPAY | END 2021-04-20 23:59 | disposition short-term general hospital (02) | PROVIDERS: PCP Family Medicine; Visit Provider Family Medicine | DX: Z20.828 Contact with and (suspected) exposure to other viral communicable diseases (principal) | CPT/HCPCS: 87635; U0003; U0005 ==

== ENCOUNTER 2022-04-01 13:05 | Emergency (ER) | payer OTHER, BC, SELFPAY ==
[2022-04-01 13:06] VITALS: BP 135/93; PULSE 81; RESP 18; TEMP 36.9; O2SAT 99; BMI 31.0
--- NOTE | 2022-04-01 14:43 | EX.ED.DYSGE1 ---
HPI History of Present Illness Chief Complaint: Abscess Informant: patient Narrative Narrative: Right axillary abscess. This progressed in size over the past week. States had very small bump 5 years ago when he had follicle testing. He states 3 years ago there was increasing in size with PCP putting him on antibiotics with improvement. No fevers no drainage pain with palpation. No history of incision or drainage in the past. Prior similar symptoms: Yes PFSH PFSH Medical History (Updated 04/01/22 @ 15:[address] 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 Jacinto Purdy DO) History of sinus surgery (~02/2019) Social History Smoking Status: Former smoker Tobacco: How many years used: 5 how long ago did patient quit smokin alcohol intake: never ROS ROS ED Constitutional Constitutional ED: Denies chills, fever(s) or sweats Eyes Eyes: Denies change in vision ENT ENT ED: Denies dysphagia or sore throat Cardiovascular Cardiovascular: Denies chest pain, leg edema, palpitations or racing heartbeat Respiratory/Chest Respiratory/Chest: Denies cough, dyspnea or dyspnea on exertion Gastrointestinal Gastrointestinal: Denies abdominal pain, diarrhea, nausea or vomiting Genitourinary Genitourinary ED: Denies dysuria, hematuria or urinary frequency Musculoskeletal Musculoskeletal: Denies back pain, extremity pain or neck pain Integumentary Reports abscess; Denies rash or wounds Neurologic Neurologic: Denies headache(s), paresthesias or weakness EXAM Physical Exam Const Vital Signs: 04/01/22 13:06 Temperature 98.4 F Temperature Source Temporal Pulse Rate 81 Respiratory Rate 18 Blood Pressure 135/93 H Blood Pressure Mean 107 Pulse Ox 99 Oxygen Delivery Method Room Air Positive well nourished and well developed General Appearance ED: well developed and NAD HEENT Reports moist mucous membranes normocephalic and atraumatic Eyes PERRL, EOMs intact bilaterally and conjunctivae normal General Eye ED: Yes normal appearance of both eyes Neck no lymphadenopathy and supple General: Negative for tenderness Chest Wall Chest: Negative for tenderness Resp normal respiratory effort and normal air movement Effort and Inspection: symmetric chest movement; Negative for respiratory distress Cardio regular rate, regular rhythm and no murmurs Peripheral Pulses: pulses 2+ throughout GI normal to inspection, nondistended, normoactive bowel sounds and non-tender Palpation: Negative for guarding or rebound tenderness present Back/Spine no CVA tenderness and no thoracic nor lumbar tenderness Extremity normal to inspection General Extremety ED: Negative for edema or tenderness General Extremity: Negative for edema Neuro oriented x3 and no sensory deficits noted Sensorium / Orientation: awake and alert Skin Skin Narrative: Right axillary: 3 x 2 cm fluctuance, no surrounding erythema or active drainage. Tender to palpation. MDM MDM MDM Narrative Medical decision making narrative: Patient with fluctuant mass right axillary. This was incised and drained no sebaceous material. There is no infection definitive treat with I&D. Wound care discussed with follow-up with his PCP. Discussed recurred may need surgical referral for excision. He understands this. All questions were answered. Procedure note: Verbal consent. Prepped in normal sterile fashion. Shur-Clens skin prep. 5 cc lidocaine 1% with epinephrine used for local analgesia. Additional Shur-Clens prep. 11 blade a cruciate incision there was sebaceous material coming out and extracted. Hemostats were loculations. Flushed with normal saline. Dressing placed by myself. Patient tolerated procedure well. Discharge Plan Triage Chief Complaint: Abscess ED Provider: Jacinto Purdy Dx/Rx/DC Orders Clinical Impression: Sebaceous cyst of axilla, Status post incision and drainage Instructions: ED Abscess Incision And Drainage, ED Epidermoid Cyst, No Infection Prescriptions: No Action omeprazole 20 mg capsule,delayed release(DR/EC) 20 mg PO DAILY lisinopril-hydrochlorothiazide 1 EACH tablet 1 ea PO DAILY Primary Care Provider: Nica Mcgovern Referrals: Nica Mcgovern MD [Primary Care Provider] - 1 Week Activity Restrictions/Additional Instructions: Incision and drainage with sebaceous material. Wound care as discussed. Follow-up with your doctor. Disposition Disposition: Home, Self Care Discharge Date/Time: 04/01/22 15:23
== END 2022-04-01 15:23 | disposition home or self-care (01) ==
PROVIDERS: Emergency Provider Emergency Medicine; PCP Family Medicine; Visit Provider Emergency Medicine
DX: L72.3 Sebaceous cyst (principal); Z87.891 Personal history of nicotine dependence
CPT/HCPCS: 99283

== ENCOUNTER → 2023-11-23 | Outpatient (CLI) | payer OTHER, SELFPAY ==
[2023-11-23 18:17] LABS: Color, Urine Yellow (Yellow); Glucose, Dipstick Normal (Normal); Ketone-Dipstick Negative (Negative); Leukocyte Esterase-Dipstick Negative /ul (Negative); Nitrite-Dipstick Negative (Negative); Occult Blood-Urine Negative /ul (Negative); Protein-Dipstick Negative (Negative); Specific Gravity, Urine 1.025 (1.002-1.030); Urine Bilirubin Dipstick Negative (Negative); Urine Clarity Clear (Clear); Urine Urobilinogen 4 mg/dl (Normal)
== END | disposition home or self-care (01) ==
PROVIDERS: PCP Family Medicine; Visit Provider Family Medicine
DX: Z20.9 Contact with and (suspected) exposure to unspecified communicable disease (principal)
CPT/HCPCS: 81002; 87086; 87088; 87491; 87591

== ENCOUNTER → 2023-11-26 | Outpatient (CLI) | payer OTHER, SELFPAY ==
[2023-11-26 10:30] LABS: Absolute Lymphocyte Count 2.51 X10^3/uL (0.83-4.51); Absolute Neutrophil Count 3.5 X10^3/uL (2.0-7.7); Basophil# 0.07 X10^3/uL; Eosinophil# 0.07 X10^3/uL; Hematocrit 46.4 % (40-54); Lymphocyte # 2.51 X10^3/ul (0.83-4.51); Lymphocyte % 37.6 % (19-41); Mean Corp Hgb Conc 34.5 g/dL (32-36); Mean Corpuscular Hgb 30.4 pg (27.0-32.0); Mean Corpuscular Volume 88.2 fL (80-94); Mean Platelet Vol. 9.8 fl (6.2-12.0); Monocyte# 0.56 X10^3/uL; Monocyte% 8.4 % (0-10); NRBC Flagged by Analyzer 0 % (0-5); Neutrophil # 3.46 X10^3/uL (2.7-7.7); Neutrophil % 51.9 % (47-70); Platelet Count 302 K/mm3 (150-450); RBC Distribution Width CV 12.4 % (11.6-14.6); RBC Distribution Width SD 40.1 fl (35.1-43.9); Red Blood Count 5.26 M/mm3 (4.6-6.2); White Blood Count 6.7 K/mm3 (4.4-11.0)
[2023-11-26 11:07] LABS: ALB/GLOB Ratio 1.1 RATIO (0.9-2.4); AST(SGOT) 19 U/L (15-37); Alanine Aminotransfer ALT/SGPT 42 U/L (16-61); Albumin, Serum 3.9 g/dL (3.2-5.0); Alkaline Phosphatase 85 U/L (45-117); Anion Gap 3 (5-15); BUN 11 mg/dL (7-18); BUN/Creat Ratio 13.7 RATIO (10-20); Calcium,Total 9.1 mg/dL (8.5-10.1); Chloride 106 mmol/L (98-107); Cholesterol 156 mg/dL (200); EST Glomerular Filtration Rate 113 mL/min (>60); Est Glom Filt Rate - Afr Amer 136 mL/min (>60); Globulin 3.6 g/dL (2.2-4.2); Glucose 112 mg/dL (74-106); High Density Lipoprotein 43 mg/dL; Potassium 4.4 mmol/L (3.5-5.1); Protein, Total 7.5 g/dL (6.4-8.2); Sodium Level 138 mmol/L (136-145); Triglycerides 73 mg/dL; Very Low Density Lipoprotein 15 mg/dL (5-40)
[2023-11-26 11:19] LABS: HIV - WCH Non-Reactive (Nonreactive); Syphilis Antibodies Non-reactive
[2023-11-28 15:09] LABS: Testosterone Free 17.4 pg/mL (6.8-21.5)
== END | disposition home or self-care (01) ==
PROVIDERS: PCP Family Medicine; Referring Provider Family Medicine; Visit Provider Family Medicine
DX: I10 Essential (primary) hypertension (principal); K76.0 Fatty (change of) liver, not elsewhere classified; Z20.9 Contact with and (suspected) exposure to unspecified communicable disease
CPT/HCPCS: 36415; 80053; 80061; 84402; 85025; 86703; 86780

== ENCOUNTER → 2024-01-29 | Outpatient (CLI) | payer OTHER, SELFPAY ==
--- OUTSIDE RECORDS SUMMARY | 2024-01-29 12:34 | XMS RPT_ITS | CCD ---
Author Organization [facility] Care Team Providers Care Trim Line Worker Name Role Phone Duran Galloway Unavailable Unavailable Duran Galloway Unavailable Unavailable No Doctor Assigned, Nodr Unavailable Unavail able MELISSALACEY LEWIS Admitting Unavailable MELISSALACEY LEWIS Attending Unavailable MELISSALACEY LEWIS Primary Care Unavailable Unavailable Primary Care Provider Unavailmaria esther e Unavailable Primary Care Provider Unavailmaria esther e Medications Current Medications Medication Drug Class(es) Dates Sig (Normalized) Sig (Original) amoxicillin 875 mg / clavulanate 125 mg oral tablet (1 source) Penicillin-class Antibacterial Start: 08-21-2021 End: 08-28-2021 take 1 tablet by mouth twice daily amoxicillin-clavulan ic acid (AUGMENTIN) 875-125 mg per tablet Take 1 tablet by mouth twice daily for 7 days. 14 tablet 0 08/21/2021 08/28/2021 Active Comment on above: Take 1 tablet by jaja th twice daily for 7 days. cyclobenzaprine hydrochloride 10 mg oral tablet (1 source) Muscle Relaxant Start: 01-28-2024 take 0.5 tablet by mouth twice daily as needed for muscle spasms cyclobenzaprine (Flexeril) 10 mg tablet Indications: History of kidney stones Take 0.5 tablets (5 mg) by mouth 2 times a day as needed for muscle spasms. 30 tablet 01/28/2024 Active Start: 01-28-2024 take 0.5 tablet by m outh twice daily as needed for muscle spasms cyclobenzaprine (Flexeril) 10 mg tablet Indications: History of kidney stones Take 0.5 tablets (5 mg) by mouth 2 times a day as needed for muscle spasms. 30 tablet 01/28/2024 Active hydroCHLOROthiazide 12.5 mg / lisinopril 10 mg oral tablet (1 source) Thiazide Diuretic, Angiotensin Converting Enzyme Inhibitor Start: 11-13-2023 take 1 tablet by mouth in the morning lisinopriL-hydrochlorothiazide 10-12.5 mg tablet Take 1 tablet by mouth early in the morning.. 11/13/2023 Active ibuprofen 600 mg oral tablet (1 source) Nonsteroidal Anti-inflammato ry Drug Start: 01-28-2024 End: 02-11-2024 take 1 tablet by mouth twice daily ibuprofen 600 mg tablet Indications: Inguinal pain, unspecified laterality Take 1 tablet (600 mg) by mouth 2 times a day for 14 days. 28 tablet 01/28/2024 02/11/2024 Active tadalafil 20 mg oral tablet (2 sources) Phosphodiestera se 5 Inhibitor Start: 01-28-2024 End: 02-27-2024 take 1 tablet by mouth once daily as needed tadalafil (Cialis) 20 mg tablet Indications: Erectile dysfunction, unspecified erectile dysfunction type Take 1 tablet (20 mg) by mouth once daily as needed for erectile dysfunction. 30 tablet 3 01/28/2024 02/27/2024 Active Start: 01-28-2024 End: 01-27-2025 take 1 tablet by mouth once daily tadalafil (Cialis) 5 mg tablet Indications: Benign prostatic hyperplasia, unspecified whether lower urinary tract symptoms present Take 1 tablet (5 mg) by mouth once daily. 30 tablet 11 01/28/2024 01/27/2025 Active Completed/Discontinued Medications Medication Drug Class(es) Dates Sig (Normalized) Sig (Original) Lisinopril (1 source) Angiotensin Converting Enzyme Inhibitor LISINOPRIL ORAL Take by mouth. 0 Active Comment on above: Take by mouth. Problems Problem Classification Problem Date Documented Da te Episodic/Chronic Abdominal pain (2 sources) Inguinal pain; Translations: [Lower abdominal pain, unspecified] Onset: 01-28-2024 01-28-2024 Episodic Calculus of urinary tract (2 sources) History of calculus of kidney; Translations: [Personal history of urinary calculi] Onset: 01-28-2024 01-28-2024 Episodic Genitourinary symptoms and ill-defined conditions (1 source) Nocturia; Translations: [Nocturia] 01-28-2024 Episodic Hyperplasia of prostate (1 source) Benign prostatic hyperplasia; Translations: [Benign prostatic hyperplasia without lower urinary tract symptoms] 01-28-2024 Chronic Immunizations and screening for infectious disease (3 sources) Encounter for screening for other viral diseases; Translations: [Encounter for screening for other viral diseases] Onset: 10-21-2019 Episodic Malaise and fatigue (1 source) Fatigue; Translations: [Other fatigue] 01-28-2024 Episodic Other ear and sense organ disorders (1 source) Otalgia, left ear; Translations: [Otalgia, unspecified] Episodic Other male genital disorders (2 sources) Male erectile dysfunction, unspecified; Translations: [Impotence of organic origin] Onset: 01-28-2024 01-28-2024 Chronic Otitis media and related conditions (1 source) Perforation of left tympanic membrane; Translations: [Unspecified perforation of tympanic membrane, left ear] Episodic Results Test Name Value Interpretation Reference Range Facility [facility] 08-21-2021 CNOV Office Visit (UCWSTR ) AV AVELAR ([id number]) 1980 M Date Time Provider Department 08/21/21 11:00 AM CELSO COX [facility] During your visit today, we recorded the following information about you: Temperature Pulse Respiration Blood pressure 98.6 degrees 90/minute 21/minute 130/92 Weight 104 kg Celso Cox APRN.CNP 08/21/2021 11:29 AM Signed This note was created using NoteWriter. Subjective Av Avelar is a 40 year old male. 40 year old male with PMH HTN presents with complaints of left ear pain. Acute onset yesterday morning. felt plugged Endorses yesterday evening it escalated Became increasingly painful. He utilized a q-tip +drainage from ear. dont' know what is going on Endorses over the past week he has had sinus like symptoms +congestion +sinus pressure +runny nose Denies cough or congestion. Denies abdominal pain. Denies N/V/D. The history is provided by the patient. No russian language professor was used. Ear Pain This is a new problem. The current episode started yesterday. The problem occurs constantly. The problem has been gradually worsening. Associated symptoms include congestion and coughing. Pertinent negatives include no abdominal pain, anorexia, arthralgias, change in bowel habit, chest pain, chills, diaphoresis, fatigue, fever, headaches, joint swelling, myalgias, nausea, neck pain, numbness, rash, sore throat, swollen glands, urinary symptoms, vertigo, visual change, vomiting or weakness. Nothing aggravates the symptoms. Treatments tried: Q-tip. The treatment provided no relief. No past medical history on file. No past surgical history on file. ALLERGIES Patient has no allergy information on record. MEDICATIONS LISINOPRIL ORAL Take by mouth. amoxicillin-clavulanic acid (AUGMENTIN) 875-125 mg per tablet Take 1 tablet by mouth twice daily for 7 days. No family history on file. Social History Tobacco Use - Smoking status: Not on file - Smokeless tobacco: Not on file Substance Use Topics - Alcohol use: Not on file - Drug use: Not on file Review of Systems Constitutional: Negative for chills, diaphoresis, fatigue and fever. HENT: Positive for congestion, ear discharge, ear pain, sinus pressure and sinus pain. Negative for sore throat. Eyes: Negative for photophobia, pain, discharge, redness, itching and visual disturbance. Respiratory: Positive for cough. Negative for apnea, choking and chest tightness. Cardiovascular: Negative for chest pain, palpitations and leg swelling. Gastrointestinal: Negative for abdominal pain, anorexia, change in bowel habit, nausea and vomiting. Musculoskeletal: Negative for arthralgias, joint swelling, myalgias and neck pain. Skin: Negative for color change, pallor and rash. Allergic/Immunologic: Negative for environmental allergies, food allergies and immunocompromised state. Neurological: Negative for vertigo, weakness, numbness and headaches. Hematological: Negative for adenopathy. Does not bruise/bleed easily. Psychiatric/Behavioral : Negative for agitation and behavioral problems. Objective BP 130/92 Pulse 90 Temp 37 ?C (98.6 ?F) Resp 21 Wt 104 kg (229 lb 3.2 oz) SpO2 99% Physical Exam Vitals and nursing note reviewed. Constitutional: General: He is not in acute distress. Appearance: Normal appearance. He is not ill-appearing, toxic-appearing or diaphoretic. HENT: Head: Normocephalic and atraumatic. Right Ear: Tympanic membrane, ear canal and external ear normal. Ears: Comments: +purulent foaming drainage noted left ear. TM not visualized ?? Ruptured TM Nose: Nose normal. No congestion or rhinorrhea. Mouth/Throat: Mouth: Mucous membranes are moist. Pharynx: Oropharynx is clear. No oropharyngeal exudate or posterior oropharyngeal erythema. Eyes: General: Right eye: No discharge. Left eye: No discharge. Extraocular Movements: Extraocular movements intact. Conjunctiva/sclera: Conjunctivae normal. Pupils: Pupils are equal, round, and reactive to light. Cardiovascular: Rate and Rhythm: Normal rate and regular rhythm. Pulses: Normal pulses. Heart sounds: Normal heart sounds. No murmur heard. No friction rub. No gallop. Pulmonary: Effort: Pulmonary effort is normal. No respiratory distress. Breath sounds: Normal breath sounds. No stridor. No wheezing, rhonchi or rales. Chest: Chest wall: No tenderness. Abdominal: General: Abdomen is flat. There is no distension. Palpations: Abdomen is soft. There is no mass. Tenderness: There is no abdominal tenderness. There is no guarding or rebound. Hernia: No hernia is present. Musculoskeletal: General: No swelling, tenderness, deformity or signs of injury. Normal range of motion. Cervical back: Normal range of motion and neck supple. No rigidity or tenderness. Right lower leg: No edema. Left lo (more content not included)... Normal [facility] CORONAVIRUS PCR [CCL]on 10-07 COVID 19 Result CARGO INSPECTOR Negative Normal [facility] Comment on above: Result Comment: Nega tive for COVID19 (SARS CoV2) by PCR. This test was developed and its performance characteristics determined by [facility] [place]. This test has been authorized by FDA under an Emergency Use Authorization (EUA). This test has been validated in accordance with the FDA's Guidance Document Policy for Diagnostics Testing in Laboratories Certified to Perform High Complexity Testing under CLIA prior to Emergency use Authorization for Coronavirus Disease 2019 during the Public Health Emergency issued on June 07, 2019. [facility] [address] [place] [address] Christopher Alonso III, M.D. [id number] Performed By: #### 2 [id number] #### [facility],[address] [place] [address] COVID 19 Source CARGO INSPECTOR Nasopharyngeal Swab Normal [facility] Comment on above: Performed By: #### 2 [id number] #### [facility],[address] [place] [address] Coronavirus 0 COVID 19 Result CARGO INSPECTOR Normal Negative for COVID19 (SARS CoV2) by PCR. [facility] Comment on above: Result Comment: Nega tive for This test was developed and its performance characteristics determined by [facility] [place]. This test has been authorized by FDA under an Emergency Use Authorization (EUA). This test has been validated in accordance with the FDA's Guidance Document Policy for Diagnostics Testing in Laboratories Certified to Perform High Complexity Testing under CLIA prior to Emergency use Authorization for Coronavirus Disease 2019 during the Public Health Emergency issued on June 07, 2019. COVID19 (SARS This test was developed and its performance characteristics determined by [facility] [place]. This test has been authorized by FDA under an Emergency Use Authorization (EUA). This test has been validated in accordance with the FDA's Guidance Document Policy for Diagnostics Testing in Laboratories Certified to Perform High Complexity Testing under CLIA prior to Emergency use Authorization for Coronavirus Disease 2019 during the Public Health Emergency issued on June 07, 2019. CoV2) by PCR. This test was developed and its performance characteristics determined by [facility] [place]. This test has been authorized by FDA under an Emergency Use Authorization (EUA). This test has been validated in accordance with the FDA's Guidance Document Policy for Diagnostics Testing in Laboratories Certified to Perform High Complexity Testing under CLIA prior to Emergency use Authorization for Coronavirus Disease 2019 during the Public Health Emergency issued on June 07, 2019. Coronavirus 0 COVID 19 Source CARGO INSPECTOR CARGO INSPECTOR Normal [facility] Auto Diffon 11-11-2016 Basophils Auto #/vol (Bld) 0.1 E3/mcL Normal 0.0-0.2 [facility] Comment on above: Order Comment: Order Added by Discern Expert. Performed By: #### 2 [id number] ####ROSINA [address] [place] [address] Basophils/100 WBC Auto (Bld) 0.8 % Normal 0.0-2.0 [facility] Comment on above: Order Comment: Order Added by Discern Expert. Performed By: #### 2 [id number] ####ROSINA HarrisonYdpXlbh[address] [place] [address] Eos Absolute 0.2 E3/mcL Normal 0.0-0.7 [facility] Comment on above: Order Comment: Order Added by Discern Expert. Performed By: #### 2 [id number] ####ROSINA [address] [place] [address] Eosinophils/100 leukocytes 2.1 % Normal 0.0-11.0 [facility] Comment on above: Order Comment: Order Added by Discern Expert. Performed By: #### 2 [id number] ####ROSINA [address]DoqKoll[address] [place] [address] Lymphocytes 3.2 E3/mcL Normal 1.2-3.4 [facility] Comment on above: Order Comment: Order Added by Discern Expert. Performed By: #### 2 [id number] ####ROSINA [address] [place] [address] Lymphocytes/100 leukocytes 41.6 % Normal 20.0-55.0 [facility] Comment on above: Order Comment: Order Added by Discern Expert. Performed By: #### 2 753002 ####ROSINA [address]po[address]edm[address] [place] [address] [place] Absolute 0.6 E3/mcL Normal 0.0-0.7 [facility] Comment on above: Order Comment: Order Added by Discern Expert. Performed By: #### 2 [id number] ####ROSNIA HarrisonHtmCgfb0243 [place] [address] Monocytes/100 leukocytes 7.9 % Normal 0.0-10.0 [facility] Comment on above: Order Comment: Order Added by Discern Expert. Performed By: #### 2 [id number] ####ROSINA [address]SfuTugh[address] [place] [address] Neutro Absolute 3.6 E3/mcL Normal 1.4-6.5 [facility] Comment on above: Order Comment: Order Added by Discern Expert. Performed By: #### 2 [id number] ####ROSINA [address] [place] [address] Neutro Auto 47.6 % Normal 37.0-75.0 [facility] Comment on above: Order Comment: Order Added by Discern Expert. Performed By: #### 2 669021 ####ROSINA [address] [place] [address] BMPon 11-11-2016 BUN/Creatinine Ratio 20.0 ratio Normal 5.4-30.0 [facility] Comment on above: Performed By: #### 2 247757 ####ROSINA HarrisonNrhIrsx[address] [place] [address] Creatinine 0.7 mg/dL Normal 0.6-1.3 [facility] Comment on above: Performed By: #### 2 119490 ####ROSINA [address]HjmXuae[address] [place] [address] Urea nitrogen 14 mg/dL Normal 7-18 [facility] Comment on above: Performed By: #### 2 145256 ####ROSINA HarrisonUkrLidj[address] [place] [address] Calcium 9.4 mg/dL Normal 8.4-10.2 [facility] Comment on above: Performed By: #### 2 865957 ####ROSINA [address]OfwWwmi[address] [place] [address] Chloride 103 mmol/L Normal 98-107 [facility] Comment on above: Performed By: #### 2 415686 ####ROSINA HarrisonYmxPbzb6125 [place] [address] CO2 28.6 mmol/L Normal 24.0-30.0 [facility] Comment on above: Performed By: #### 2 057573 ####ROSINA [address]Sjhn[address] [place] [address] Glucose mass conc 97 mg/dL Normal 70-99 [facility] Comment on above: Performed By: #### 2 596197 ####ROSINA [address]LvaXdeu[address] [place] [address] Potassium molar conc 3.8 mmol/L Normal 3.5-5.1 [facility] Comment on above: Performed By: #### 2 [id number] ####ROSINA [address]IsfNlcq[address] [place] [address] Sodium 138 mmol/L Normal 136-145 [facility] Comment on above: Performed By: #### 2 783870 ####ROSINA [address]KadSwgd[address] [place] [address] CBC w/ Auto Diffon 7 Erythrocyte distribution width Auto Ratio (RBC) 12.9 % Normal 11.5-14.5 [facility] Comment on above: Performed By: #### 2 296124 ####ROSINA [address] [place] [address] Erythrocytes (RBC) 4.93 E6/mcL Normal 3.90-6.10 [facility] Comment on above: Performed By: #### 2 379227 ####ROSINA [address] [place] [id number] Hematocrit (HCT) 43.2 % Normal 42.0-52.0 [facility] Comment on above: Performed By: #### 2 [id number] ####ROSINA [address] [place] [address] Hemoglobin mass conc (Bld) 15.1 g/dL Normal 13.5-18.0 [facility] Comment on above: Performed By: #### 2 508427 ####ROSINA HarrisonWpnBhab[address] [place] [address] MCH 30.6 pg Normal 27.0-31.0 [facility] Comment on above: Performed By: #### 2 562081 ####ROSINA HarrisonDdkJwfb4694 [place] [address] MCHC mass conc (RBC) 34.9 g/dL Normal 33.0-37.0 [facility] Comment on above: Performed By: #### 2 323532 ####ROSINA [address]DpwEncb[address]32 [place] [address] MCV 87.7 fL Normal 78.0-100.0 [facility] Comment on above: Performed By: #### 2 [id number] ####ROSINA HarrisonLenRlal1898 [place] [address] Platelet mean volume (PMV) 8.4 fL Normal 7.4-11.0 [facility] Comment on above: Performed By: #### 2 075544 ####ROSINA HarrisonVpzZswq6415 [place] [address] Platelets 254 E3/mcL Normal 130-400 [facility] Comment on above: Performed By: #### 2 400657 ####ROSINA HarrisonFoxYxzg6568 [place] [address] WBC (Leukocytes) 7.6 E3/mcL Normal 3.6-11.0 [facility] Comment on above: Performed By: #### 2 [id number] ####ROSINA [address] [place] [address] CKon 11-11-2016 Total CK 79 Int._Unit/L Normal 26-140 [facility] Comment on above: Performed By: #### 2 705688 ####ROSINA TmhNmkc[address] [place] [address] CKMBon 11-11-2016 CKMB 3.9 ng/mL Normal 0.0-5.0 [facility] Comment on above: Performed By: #### 2 793539 ####ROSINA [facility] [address]qr[address] [place] [address] D-Dimeron 11-11-2016 D-Dimer 0.27 mg/L FEU Normal <=0.50 [facility] Comment on above: Result Comment: Norm al D Dimer level indicates no Deep Vein Thrombosis (DVT) or Pulmonary Embolism (PE).Elevated D Dimer level indicates additional studies and clinical assessments are indicated to conclude diagnosis of Deep Vein Thromobsis (DVT) or Pulmonary Embolism (PE). Performed By: #### 2 [id number] ####ROSINA [facility] L[address]mhgfwk3572 [place] [address] Hep Func Panelon 11-11-2016 Alanine aminotransferase (ALT) 33 Int._Unit/L Normal 10-40 [facility] Comment on above: Performed By: #### 2 119034 ####ROSINA [facility] [address] [place] [address] Albumin 4.5 g/dL Normal 3.2-5.0 [facility] Comment on above: Performed By: #### 2 101363 ####[facility] [address] [place] [address] Albumin/Globulin Ratio 1.5 {ratio} Normal 1.1-1.9 [facility] Comment on above: Performed By: #### 2 220646 ####ROS[facility] [address] [place] [address] Alk Phos 78 Int._Unit/L Normal 42-121 [facility] Comment on above: Performed By: #### 2 925986 ####ROSINA [facility] [address] [place] [address] Aspartate aminotransferase (AST) 24 Int._Unit/L Normal 10-42 [facility] Comment on above: Performed By: #### 2 [id number] ####ROSINA [facility] [address] [place] [address] Bili Direct .10 mg/dL Normal .00-.20 [facility] Comment on above: Performed By: #### 2 [id number] ####ROSINA [facility] [address] [place] [address] Bili Indirect 1.0 Normal [facility] Comment on above: Result Comment: No e stablished ranges available for the Indirect Biliruben. Performed By: #### 2 860243 ####ROSINA [facility] [address] [place] [address] Bili Total 1.1 mg/dL High 0.2-1.0 [facility] Comment on above: Performed By: #### 2 [id number] ####ROSINA [facility] [address] [place] [address] Globulin 3.1 g/dL Normal 2.0-4.0 [facility] Comment on above: Performed By: #### 2 [id number] ####ROSINA [facility] [address] [place] [address] Protein 7.6 g/dL Normal 6.4-8.3 [facility] Comment on above: Performed By: #### 2 [id number] ####ROSINA [facility] [address]ysxb[address] [place] [address] Lipase Levelon 11-11-2016 Lipase Lvl 26 U/L Normal 8-57 [facility] Comment on above: Performed By: #### 2 432498 ####ROSINA [facility] [address] [place] [address] Magnesiumon 11-11-2016 Magnesium 2.3 mg/dL Normal 1.7-2.8 [facility] Comment on above: Performed By: #### 2 287195 ####ROSINA [facility] [address] [place] [address] PTon 11-11-2016 INR Coag RelTime (PPP) 1.0 {INR} Normal 1.0-1.2 [facility] Comment on above: Result Comment: INR Recommended Therapeuptic Ranges: Prophylaxis/treatment of DVT and PE?2.0-3.0 Prevention of systemic embolism?.2.0-3.0 Mechanical prosthetic values?2.5-3.5 CRITICAL VALUES?.>4.0 Performed By: #### 2 [id number] ####[facility] [address] [place] [address] Prothrombin time (PT) Coag time (PPP) 12.2 second(s) Normal 11.6-14.6 [facility] Comment on above: Performed By: #### 2 [id number] ####[facility] [address] [place] [address] PTTon 11-11-2016 aPTT 30.5 second(s) Normal 23.2-36.4 [facility] Comment on above: Performed By: #### 2 194342 ####ROSINA [facility] [address] [place] [address] PTT Control Ratioon 11-12-19 17 PTT Ratio 1.0 ratio Normal 0.8-1.2 [facility] Comment on above: Order Comment: Order added by Discern Expert. Performed By: #### 8 [id number] ####ROSINA [facility] [address]qlz[address] [place] [address] TSHon 11-11-2016 Thyroid stimulating hormone (TSH) 1.09 mIU/m Normal 0.30-5.60 [facility] Comment on above: Performed By: #### 2 893200 ####ROSINA [facility] [address] [place] [address] Troponin-Ion 11-11-2016 Troponin I.cardiac mass conc 0.01 ng/mL Normal .00-.03 [facility] Comment on above: Performed By: #### 2 [id number] ####ROSINA [address]vzc[address] [place] [address] XR Chest 2 Viewson 7 INR Coag RelTime (Bld) Exam Date/Time:11/11/2016 14:30 EDTReason for Exam:Chest painReportPA AND LATERAL CHESTCLINICAL INDICATION: Chest pain and shortness of breath.COMPARISON: 01/14/2016.FINDINGS: Frontal and lateral views of the chest demonstrate a normal size andconfiguration cardiomediastinal silhouette. Cardiac lines and leads overlie thethorax. There is no confluent consolidation, pleural effusion, or pneumothorax.The osseous structures are intact without acute abnormality.IMPRESSION :No radiographic evidence of an acute cardiopulmonary process. FINAL REPORT Dictated: 11/11/2016 3:21 pm Dwayne Londono MD SSigned (Electronic Signature): 11/11/2016 3:21 pmSigned by: Dwayne Londono MD Technologist: DILAN, Normal [facility] eGFRon 11-11-2016 eGFR (non-black) mL/min/{1.73_m2} Normal [facility] Comment on above: Order Comment: Order added by Discern Expert. Performed By: #### 1 [id number] ####ROSINA [address] [place] [address] Vital Signs Date Time Vital Sign Value Performing Clinician Facility 01-28-2024 11:00-0400 Body weight 97.07 kg Hai Larose MD Work Phone: [facility] 01-28-2024 11:00-0400 Diastolic blood pressure 86 mm[Hg] Hai Larose MD Work Phone: [facility] 01-28-2024 11:00-0400 Heart rate 82 /min Hai Larose MD Work Phone: [facility] 01-28-2024 11:00-0400 Respiratory rate 16 /min Hai Larose MD Work Phone: [facility] 01-28-2024 11:00-0400 Systolic blood pressure 136 mm[Hg] Hai Larose MD Work Phone: [facility] 08-21-2021 11:07-0400 Body temperature 98.6 [degF] Celso Cox TELECOMMUNICATIONS SALES REPRESENTATIVE.IT DESKTOP SUPPORT TECHNICIAN Work Phone: [facility] 08-21-2021 11:07-0400 Body weight 103.96 kg Celso Cox TELECOMMUNICATIONS SALES REPRESENTATIVE.IT DESKTOP SUPPORT TECHNICIAN Work Phone: [facility] 08-21-2021 11:07-0400 Diastolic blood pressure 92 mm[Hg] Celso Cox TELECOMMUNICATIONS SALES REPRESENTATIVE.IT DESKTOP SUPPORT TECHNICIAN Work Phone: [facility] 08-21-2021 11:07-0400 Heart rate 90 /min Celso Cox TELECOMMUNICATIONS SALES REPRESENTATIVE.IT DESKTOP SUPPORT TECHNICIAN Work Phone: [facility] 08-21-2021 11:07-0400 Respiratory rate 21 /min Celso Cox TELECOMMUNICATIONS SALES REPRESENTATIVE.IT DESKTOP SUPPORT TECHNICIAN Work Phone: [facility] 08-21-2021 11:07-0400 SaO2% (BldA) [Mass fraction] 99 % Celso Cox TELECOMMUNICATIONS SALES REPRESENTATIVE.IT DESKTOP SUPPORT TECHNICIAN Work Phone: [facility] 08-21-2021 11:07-0400 Systolic blood pressure 130 mm[Hg] Celso Cox TELECOMMUNICATIONS SALES REPRESENTATIVE.IT DESKTOP SUPPORT TECHNICIAN Work Phone: [facility] Encounters Encounter Date Encounter Type Care Provider Facility Start: 01-28-2024 End: 01-28-2024 Office outpatient new 45 minutes Hai Larose MD Work Phone: [facility] Comment on above: History of kidney st ones; Erectile dysfunction, unspecified erectile dysfunction type; Inguinal pain, unspecified laterality; Benign prostatic hyperplasia, unspecified whether lower urinary tract symptoms present; Nocturia; Fatigue, unspecified type Start: 08-21-2021 End: 08-21-2021 Patient encounter procedure Celsojessee Cox APRN.CNP Work Phone: [facility] Comment on above: Tympanic membrane ru pture, left (Primary Dx); Otalgia of left ear Start: 10-21-2019 End: 10-21-2019 Patient encounter procedure LACEY TOR[facility] Start: 11-11-2016 End: 11-11-2016 Emergency department patient visit Duran Galloway Facility:[facility] Plan of Treatment Date Care Activity Detail Author Start: 11-08-2031 Zoster Vaccines (1 o f 2) Zoster Vaccines (1 of 2) [facility] Start: 03-10-2024 End: 03-10-2024 Patient encounter procedure 03/10/2024 11:00 AM EST Office Visit [facility] [address] [place] [address] Hai Larose MD [address] [place] [address] [facility] Start: 01-28-2024 End: 01-27-2025 Prostate specific Ag [Mass/volume] in Serum or Plasma Prostate Specific Antigen Lab Routine Nocturia Expected: 01/28/2024 (Approximate), Expires: 01/27/2025 [facility] Service Area Work Phone: Comment on above: Expected: 01/28/2024 (Approximate), Expires: 01/27/2025 Start: 01-28-2024 End: 01-27-2025 Testosterone [Mass/volume] in Serum or Plasma Testosterone Lab Routine Fatigue, unspecified type Expected: 01/28/2024 (Approximate), Expires: 01/27/2025 [facility] Work Phone: Comment on above: Expected: 01/28/2024 (Approximate), Expires: 01/27/2025 Start: 12-09-2023 COVID-19 Vaccine ( season) COVID-19 Vaccine ( season) [facility] Start: 12-09-2023 Influenza vaccination Influenza Vacc ine (#1) [facility] Start: 12-08-2021 Influenza vaccination INFLUENZ A (Season Ended) [facility] Start: 2016 LIPID SCREEN LIPID SCREEN [facility] Start: 11-08-2003 DTaP/Tdap/Td Vaccine s (1 - Tdap) DTaP/Tdap/Td Vaccines (1 - Tdap) [facility] Start: 2000 Hepatitis B Vaccines (1 of 3 - 19+ 3-dose series) Hepatitis B Vaccines (1 of 3 - 19+ 3-dose series) [facility] Start: 2000 Urine microalbumin profile DTAP,TDAP,TD (1 - Tdap) [facility] Start: 11-08-1999 HEPATITIS C SCREENING HEPATITIS C [facility] Start: 11-08-1999 Hepatitis C screening Hepatitis C [facility] Start: 11-08-1999 HIV SCREENING HIV SCREENING [facility] Start: 1994 Varicella vaccination Varicell a Vaccines (1 of 2 - 13+ 2-dose series) [facility] Start: 1993 Adult depression screening assessment DEPRESSION SCREENING [facility] Start: 1986 COVID-19 VACCINE (#1) COVID-19 VACCI NE (#1) [facility] Start: 1982 MMR Vaccines (1 of 1 - Standard series) MMR Vaccines (1 of 1 - Standard series) [facility] Start: 1981 HIV screening HIV Screening [facility] Start: 1981 Lipid panel Lipid Panel [facility] Start: 1981 Yearly Adult Physical Yearly Adult P hysical [facility] Payers Date Payer Category Payer Private Health Insurance BRANDY GERMAN [id number] 2021-Present [phone] [id number] [place] [id number] Open Access [id number] 2019 Managed Care (Private) BRANDY ALEJANDRA [facility] PLAN [id number] 2017 Unknown 1981 Unknown [id number] Unknown [id number] Social History Date Type Detail Facility Tobacco smoking status ARIS Tobacco smoking consumption unknown [facility] Start: 1981 Sex Assigned At Not on file [facility] Start: 08-11-2021 End: 01-28-2024 Exposure to SARS-CoV-2 (event) Not sure [facility] Work Phone: Start: 01-28-2024 Tobacco smoking status ARIS Never smoked tobacco [facility] Work Phone: Start: 01-28-2024 Tobacco use and exposure Smokeless tobacco non-user [facility] Work Phone: Gender identity Not on file [facility] Work Phone: History of Present illness Narrative 01-28-2024 Hai Larose MD - 01/28/2024 10:45 AM EDT Note Date & Type Note Facility 01-28-2024 History of Present illness Narrative Subjective Patient ID: Av Avelar is a 43 y.o. male. HPI Patient is here for groin pain and ED. It started after straining to move a railroad tie. No recent imaging.. LUTS are mild and stable. No hematuria, No dysuria. Nocturia x 1, depending on fluid intake. Patient has a hx of kidney stones, no recent sx. No flank pain. No N/V, No F/C. ED is becoming an issue. He has some difficulty maintaining an erection. Libido is good Review of Systems Constitutional: Negative for chills and fever. HENT: Negative. Eyes: Negative. Respiratory: Negative for cough and shortness of breath. Cardiovascular: Negative for chest pain and leg swelling. Gastrointestinal: Negative for nausea. Endocrine: Negative. Genitourinary: Negative for difficulty urinating. Negative except for documented in HPI Allergic/Immunologic: Negative. Neurological: Alert & oriented X 3 Hematological: Denies blood thinners Psychiatric/Behavioral: Negative. Objective Physical Exam Vitals and nursing note reviewed. Constitutional: General: He is not in acute distress. Appearance: Normal appearance. Pulmonary: Effort: Pulmonary effort is normal. Abdominal: Tenderness: There is no abdominal tenderness. Genitourinary: Comments: Kidneys non palpable bilaterally Bladder non palpable or tender Scrotum no mass, No hydrocele Epididymis- No spermatocele. Non Tender. Testicles: No mass. WNL Urethra: No discharge Penis within normal limits... No lesions. circumcised Prostate - deferred Neurological: Mental Status: He is alert. Assessment/Plan Diagnoses and all orders for this visit: History of kidney stones Erectile dysfunction, unspecified erectile dysfunction type Inguinal pain, unspecified laterality All available PSA values reviewed, Options discussed. Questions answered. PSA ordered Diet changes for prostate health discussed and educational information given. Pros/Cons of prostate health supplements discussed. Treatment options for LUTS reviewed Discussed timed voiding. Discussed fluid and caffeine intake Treatment options for ED reviewed. Cialis 5mg Rx given Cialis 20mg Rx given Lifestyle change to help prevent UTIs discussed. Encouraged fluid intake. pros/cons of Testosterone replacement reviewed. Replacement options discussed. Questions answered. Available levels reviewed. T level ordered Discussed Flexeril and NSAIDS-Rx given for PRN F/U 6 weeks documented in this encounter [facility] Work Phone: Progress note 08-21-2021 Note Date & Type Note Facility 08-21-2021 Note HNO ID: [id number] Author: Celso Cox APRN.[facility] Service: ? Author Type: Nurse Practitioner Type: Progress Notes Filed: 08/21/2021 11:29 AM Note Text: This note was created using [employer]. Subjective Av Avelar is a 40 year old male. 40 year old male with PMH HTN presents with complaints of left ear pain. Acute onset yesterday morning. felt plugged Endorses yesterday evening it escalated Became increasingly painful. He utilized a q-tip +drainage from ear. dont' know what is going on Endorses over the past week he has had sinus like symptoms +congestion +sinus pressure +runny nose Denies cough or congestion. Denies abdominal pain. Denies N/V/D. The history is provided by the patient. No russian language professor was used. Ear Pain This is a new problem. The current episode started yesterday. The problem occurs constantly. The problem has been gradually worsening. Associated symptoms include congestion and coughing. Pertinent negatives include no abdominal pain, anorexia, arthralgias, change in bowel habit, chest pain, chills, diaphoresis, fatigue, fever, headaches, joint swelling, myalgias, nausea, neck pain, numbness, rash, sore throat, swollen glands, urinary symptoms, vertigo, visual change, vomiting or weakness. Nothing aggravates the symptoms. Treatments tried: Q-tip. The treatment provided no relief. No past medical history on file. No past surgical history on file. ALLERGIES Patient has no allergy information on record. MEDICATIONS LISINOPRIL ORAL Take by mouth. amoxicillin-clavulanic acid (AUGMENTIN) 875-125 mg per tablet Take 1 tablet by mouth twice daily for 7 days. No family history on file. Social History Tobacco Use - Smoking status: Not on file - Smokeless tobacco: Not on file Substance Use Topics - Alcohol use: Not on file - Drug use: Not on file Review of Systems Constitutional: Negative for chills, diaphoresis, fatigue and fever. HENT: Positive for congestion, ear discharge, ear pain, sinus pressure and sinus pain. Negative for sore throat. Eyes: Negative for photophobia, pain, discharge, redness, itching and visual disturbance. Respiratory: Positive for cough. Negative for apnea, choking and chest tightness. Cardiovascular: Negative for chest pain, palpitations and leg swelling. Gastrointestinal: Negative for abdominal pain, anorexia, change in bowel habit, nausea and vomiting. Musculoskeletal: Negative for arthralgias, joint swelling, myalgias and neck pain. Skin: Negative for color change, pallor and rash. Allergic/Immunologic: Negative for environmental allergies, food allergies and immunocompromised state. Neurological: Negative for vertigo, weakness, numbness and headaches. Hematological: Negative for adenopathy. Does not bruise/bleed easily. Psychiatric/Behavioral: Negative for agitation and behavioral problems. Objective BP 130/92 Pulse 90 Temp 37 ?C (98.6 ?F) Resp 21 Wt 104 kg (229 lb 3.2 oz) SpO2 99% Physical Exam Vitals and nursing note reviewed. Constitutional: General: He is not in acute distress. Appearance: Normal appearance. He is not ill-appearing, toxic-appearing or diaphoretic. HENT: Head: Normocephalic and atraumatic. Right Ear: Tympanic membrane, ear canal and external ear normal. Ears: Comments: +purulent foaming drainage noted left ear. TM not visualized ?? Ruptured TM Nose: Nose normal. No congestion or rhinorrhea. Mouth/Throat: Mouth: Mucous membranes are moist. Pharynx: Oropharynx is clear. No oropharyngeal exudate or posterior oropharyngeal erythema. Eyes: General: Right eye: No discharge. Left eye: No discharge. Extraocular Movements: Extraocular movements intact. Conjunctiva/sclera: Conjunctivae normal. Pupils: Pupils are equal, round, and reactive to light. Cardiovascular: Rate and Rhythm: Normal rate and regular rhythm. Pulses: Normal pulses. Heart sounds: Normal heart sounds. No murmur heard. No friction rub. No gallop. Pulmonary: Effort: Pulmonary effort is normal. No respiratory distress. Breath sounds: Normal breath sounds. No stridor. No wheezing, rhonchi or rales. Chest: Chest wall: No tenderness. Abdominal: General: Abdomen is flat. There is no distension. Palpations: Abdomen is soft. There is no mass. Tenderness: There is no abdominal tenderness. There is no guarding or rebound. Hernia: No hernia is present. Musculoskeletal: General: No swelling, tenderness, deformity or signs of injury. Normal range of motion. Cervical back: Normal range of motion and neck supple. No rigidity or tenderness. Right lower leg: No edema. Left lower leg: No edema. Lymphadenopathy: Cervical: No cervical adenopathy. Skin: General: Skin is warm and dry. Capillary Refill: Capillary refill takes less than 2 seconds. Coloration: Skin is not jaundiced or pale. Findings: No bruising, lesion or rash. Neurological: Genera (more content not included)... [facility] Instructions 08-21-2021 Patient Instructions Note Date & Type Note Facility 08-21-2021 Instructions Celso Cox APRN.CNP - 08/21/2021 11:23 AM EDT PLEASE DO NOT STICK ITEMS IN EAR. RETURN HERE FOR EAR CHECK IN 10 DAYS OR PCP FINISH ALL OF ANTIBIOTIC OTITIS MEDIA GENERAL INFORMATION: Otitis media is an infection of the middle ear. The middle ear sits behind the eardrum. This infection may be caused by a virus or bacteria and often follows a cold. Children often have repeat ear infections. Otitis media is not contagious. INSTRUCTIONS: 1. An antibiotic has been prescribed. It should be taken exactly as prescribed. Do not stop the medicine even if the symptoms go away. 2. Ptyu-nsw-jsaxgjo pain medication may be taken or other pain medication as prescribed by the doctor. 3. Nothing should be placed in the ear unless instructed by your doctor. 4. The patient may return to school/daycare or work when the temperature is normal (98.6 F or 37 C). 5. The patient should not swim while the ear is infected. CONTACT YOUR DOCTOR IF YOU OR YOUR CHILD: 1. Does not feel better within 36 hours. 2. Develops a temperature over 102E F (39E C). 3. Starts vomiting or has diarrhea. 4. Develops drainage from the affected ear. 5. Has any new problem that may be related to the medicine prescribed. RETURN TO THE ED IF: 1. You or your child has a severe headache or pain around the ear. 2. You or your child notice swelling around the ear. 3. You or your child has a seizure (convulsion), twitching of the facial muscles, or passes out. 4. You or your child is dizzy, has a stiff neck, or cannot walk or talk normally. 5. Your child becomes more irritable or listless (not interested in his or her surroundings, does not get soothed by you holding him or her). documented in this encounter [facility] History of Present illness Narrative 08-21-2021 Celso Cox APRN.BUD - 08/21/2021 11:19 AM EDT Note Date & Type Note Facility 08-21-2021 History of Presen t illness Narrative This note was created using [employer]. Subjective Av Avelar is a 40 year old male. 40 year old male with PMH HTN presents with complaints of left ear pain. Acute onset yesterday morning. felt plugged Endorses yesterday evening it escalated Became increasingly painful. He utilized a q-tip +drainage from ear. dont' know what is going on Endorses over the past week he has had sinus like symptoms +congestion +sinus pressure +runny nose Denies cough or congestion. Denies abdominal pain. Denies N/V/D. The history is provided by the patient. No russian language professor was used. Ear Pain This is a new problem. The current episode started yesterday. The problem occurs constantly. The problem has been gradually worsening. Associated symptoms include congestion and coughing. Pertinent negatives include no abdominal pain, anorexia, arthralgias, change in bowel habit, chest pain, chills, diaphoresis, fatigue, fever, headaches, joint swelling, myalgias, nausea, neck pain, numbness, rash, sore throat, swollen glands, urinary symptoms, vertigo, visual change, vomiting or weakness. Nothing aggravates the symptoms. Treatments tried: Q-tip. The treatment provided no relief. No past medical history on file. No past surgical history on file. ALLERGIES Patient has no allergy information on record. MEDICATIONS LISINOPRIL ORAL Take by mouth. amoxicillin-clavulanic acid (AUGMENTIN) 875-125 mg per tablet Take 1 tablet by mouth twice daily for 7 days. No family history on file. Social History Tobacco Use Smoking status: Not on file Smokeless tobacco: Not on file Substance Use Topics Alcohol use: Not on file Drug use: Not on file Review of Systems Constitutional: Negative for chills, diaphoresis, fatigue and fever. HENT: Positive for congestion, ear discharge, ear pain, sinus pressure and sinus pain. Negative for sore throat. Eyes: Negative for photophobia, pain, discharge, redness, itching and visual disturbance. Respiratory: Positive for cough. Negative for apnea, choking and chest tightness. Cardiovascular: Negative for chest pain, palpitations and leg swelling. Gastrointestinal: Negative for abdominal pain, anorexia, change in bowel habit, nausea and vomiting. Musculoskeletal: Negative for arthralgias, joint swelling, myalgias and neck pain. Skin: Negative for color change, pallor and rash. Allergic/Immunologic: Negative for environmental allergies, food allergies and immunocompromised state. Neurological: Negative for vertigo, weakness, numbness and headaches. Hematological: Negative for adenopathy. Does not bruise/bleed easily. Psychiatric/Behavioral: Negative for agitation and behavioral problems. Objective BP 130/92 Pulse 90 Temp 37 C (98.6 F) Resp 21 Wt 104 kg (229 lb 3.2 oz) SpO2 99% Physical Exam Vitals and nursing note reviewed. Constitutional: General: He is not in acute distress. Appearance: Normal appearance. He is not ill-appearing, toxic-appearing or diaphoretic. HENT: Head: Normocephalic and atraumatic. Right Ear: Tympanic membrane, ear canal and external ear normal. Ears: Comments: +purulent foaming drainage noted left ear. TM not visualized ?? Ruptured TM Nose: Nose normal. No congestion or rhinorrhea. Mouth/Throat: Mouth: Mucous membranes are moist. Pharynx: Oropharynx is clear. No oropharyngeal exudate or posterior oropharyngeal erythema. Eyes: General: Right eye: No discharge. Left eye: No discharge. Extraocular Movements: Extraocular movements intact. Conjunctiva/sclera: Conjunctivae normal. Pupils: Pupils are equal, round, and reactive to light. Cardiovascular: Rate and Rhythm: Normal rate and regular rhythm. Pulses: Normal pulses. Heart sounds: Normal heart sounds. No murmur heard. No friction rub. No gallop. Pulmonary: Effort: Pulmonary effort is normal. No respiratory distress. Breath sounds: Normal breath sounds. No stridor. No wheezing, rhonchi or rales. Chest: Chest wall: No tenderness. Abdominal: General: Abdomen is flat. There is no distension. Palpations: Abdomen is soft. There is no mass. Tenderness: There is no abdominal tenderness. There is no guarding or rebound. Hernia: No hernia is present. Musculoskeletal: General: No swelling, tenderness, deformity or signs of injury. Normal range of motion. Cervical back: Normal range of motion and neck supple. No rigidity or tenderness. Right lower leg: No edema. Left lower leg: No edema. Lymphadenopathy: Cervical: No cervical adenopathy. Skin: General: Skin is warm and dry. Capillary Refill: Capillary refill takes less than 2 seconds. Coloration: Skin is not jaundiced or pale. Findings: No bruising, lesion or rash. Neurological: General: No focal deficit present. Mental Status: He is alert and oriented to person, place, and time. Cranial Nerves: No cranial nerve deficit. Sensory: No sensory deficit. Motor: No weakness. Coordination: Coordination normal. Gait: Gait normal. Deep Tendon Reflexes: Reflexes normal. Psychiatric: Mood and Affect: Mood normal. Behavior: Behavior normal. Thought Content: Thought content normal. Assessment and Plan ASSESSMENT/PLAN: 1. Tympanic membrane rupture, left - ICD9: 384.20, ICD10: H72.92 (primary diagnosis) ?? Spontaneous or related to inserting q-tip +foaming purulent drainage noted in EAC Unable to visualize TM Will start on Augmentin Follow up in 10 days for recheck here or at PCP Return sooner if symptoms not improving. 2. Otalgia of left ear - ICD9: 388.70, ICD10: H92.02 Related to tympanic membrane rupture RX Augment OTC analgesics Celso Cox APRN.IT DESKTOP SUPPORT TECHNICIAN documented in this encounter [facility] Evaluation note Note Date & Type Note Facility Evaluation note Diagnosis Tympanic membrane rupture, left- Primary Otalgia of left ear Otalgia, unspecified documented in this encounter [facility] Evaluation note Note Date & Type Note Facility Evaluation note Diagnosis History of kidney stones Erectile dysfunction, unspecified erectile dysfunction type Inguinal pain, unspecified laterality Benign prostatic hyperplasia, unspecified whether lower urinary tract symptoms present Nocturia Fatigue, unspecified type documented in this encounter [facility] Work Phone: Summary Purpose Family History No Family History Records FoundNo Family History Records FoundNo Family History Records FoundNo Family History Records Found Advance Directives No Advanced Directives Records FoundNo Advanced Directives Records FoundNo Advanced Directives Records FoundNo Advanced Directives Records Found Additional Source Comments (unrecognized sect ion and content) No Status Records FoundNo Status Records FoundNo Status Records FoundNo Status Records Found INFORMATION SOURCE (unrecogn ized section and content) DATE CREATED AUTHOR 10/02/2017 [facility] DATE CREATED AUTHOR AUTHOR'S ORGANIZ ATION 10/31/2019 [facility] DATE CREATED AUTHOR AUTHOR'S ORGANIZ ATION 10/31/2019 [facility] DATE CREATED AUTHOR AUTHOR'S ORGANIZ ATION 08/24/2021 [facility] Source Comments (unrecognize d section and content) In the event this informatio n is protected by the Federal Confidentiality of Alcohol and Drug Abuse Patient Records regulations: The Federal rules restrict any use of the information to criminally investigate or prosecute any alcohol or drug abuse patient.[facility] Reason for Visit (unrecogniz ed section and content) Reason Comments Ear Pain left ear pain, leaki ng fluid x 1 day FOR RECORDS PERTAINING TO PATIENTS WHO ARE OR HAVE BEEN ENROLLED IN A CHEMICAL DEPENDENCY/SUBSTANCEABUSE PROGRAM, SOME INFORMATION MAY BE OMITTED. This clinical summary was aggregated from multiple sources. Caution should be exercised in using it in the provision of clinical care. This summary normalizes information from multiple sources, and as a consequence, information in this document may materially change the coding, format and clinical context of patient data. In addition, data may be omitted in some cases. CLINICAL DECISIONS SHOULD BE BASED ON THE PRIMARY CLINICAL RECORDS. [employer] [facility]. provides no warranty or guarantee of the accuracy or completeness of information in this document.
== END | disposition home or self-care (01) ==
LOC: LAB 12:15
PROVIDERS: PCP Family Medicine; Referring Provider Urology; Visit Provider Urology
DX: R53.83 Other fatigue (principal); R35.1 Nocturia
CPT/HCPCS: 36415; 84153; 84403

== ENCOUNTER 2024-05-06 12:55 | Outpatient (CLI) | payer OTHER, SELFPAY ==
--- NOTE | 2024-05-05 13:05 | PAT.ANESEVAL ---
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 When Was Last Pacemaker Check QUESTION #4 FULL TEXT: You/Your Family Experience fever (hyperthermia) with Anesthesia Last Oral Intake Last Oral intake: Last Oral Intake NPO since Meds taken in AM with sips of water? Meds patient instructed to take am of surgery PONV PONV - waterproofing machine operator: PONV - waterproofing machine operator Female No 05/05/24 11:52 HX of Motion Sickness No 05/05/24 11:52 HX of N/V After Surgery No 05/05/24 11:52 Non-Smoker Yes 05/05/24 11:52 Duration of Surgery greater No 05/05/24 11:52 than 60 minutes Number of Risk Factors 1 05/05/24 11:52 PONV Score Low Risk 05/05/24 11:52 Height & Weight Height & Weight: Anesthesia: Height & Weight Height 5 ft 9 in 04/01/22 13:06 Respiratory Assessment Respiratory Assessment - waterproofing machine operator: Respiratory Tract Infection Hx - waterproofing machine operator Hx Respiratory Tract Infection No 05/05/24 11:52 STOP Sleep Apnea STOP Sleep Apnea - waterproofing machine operator: STOP Sleep Apnea - waterproofing machine operator Hx Hypertension Yes: controlled with med 05/05/24 11:52 Hx Sleep Apnea No 05/05/24 11:52 CPAP No 05/05/24 11:52 BIPAP Do you snore loudly (louder No 05/05/24 11:52 than talking or can be heard Do you often feel tired/ No 05/05/24 11:52 fatigued/ sleepy during daytime? Has anyone observed you stop No 05/05/24 11:52 breathing during sleep? STOP Results Negative 05/05/24 11:52 QUESTION #5 FULL TEXT : Do you snore loudly (louder than talking or can be heard through closed doors)? 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 Specify any problems Hx of Preganancy in last 3 N/A 05/05/24 11:52 Months Nurse Filling Out Transfusion VCHRISTIN 05/05/24 11:52 & Questions: Date: 05/05/24 05/05/24 11:52 Time: 11:54 05/05/24 11:52 Patient unable to answer at this time (ie. 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: /Reproductive Hx- waterproofing machine operator Hx Now Gestational Age (in weeks): EDC: Hx Hx Para Hx Section SAB PFSH Medical History (Updated 05/05/24 @ 11:52 by Marietta Badillo) Wears glasses Kidney stones Back pain Non-smoker History of echocardiogram History of stress test Cardiology follow-up encounter Migraine Obesity Hyperlipidemia Varicose veins of both lower extremities Essential hypertension Chronic pansinusitis Inverted papilloma Nasal bone fracture Nasal septal deviation Hypertrophy of inferior nasal turbinate Nasal congestion Other chronic sinusitis Home Medications ?Medication ?Instructions ?Recorded ?Last Taken ?Type lisinopril 10 1 ea PO DAILY 06/18/18 03/04/19 06:15 History mg-hydrochlorothiazide 12.5 mg tablet ibuprofen 400 mg tablet 400 mg PO 4X/DAY PRN pain 05/05/24 Unknown History tadalafil 5 mg tablet 5 mg PO DAILY 05/05/24 Unknown History Allergy/AdvReac Type Severity Reaction Status Date / Time No Known Allergies Allergy Verified 05/05/24 11:45 Family History (Updated 03/04/24 @ 11:32 by Norma Tierney) Father Colon cancer Other Alcoholism Diabetes Hypertension Surgical History (Updated 04/09/22 @ 00:01 by Sandi Barrett) History of sinus surgery (~02/2019) Social History Smoking Status: Former smoker Tobacco: How many years used: 5 how long ago did patient quit smokin alcohol intake: never Audit: Pertinent Findings Pertinent Findings EKG Perinent findings: NSR from 05/17/20. No new symptoms Stress test pertinent findings: Normal Echo (EF%) pertinent findings: 65% Normal for age Recommendation Anesthesia Recommendation Anesthesia recommendation: OPTIMIZED for anesthesia
== END 2024-05-06 19:00 | disposition home or self-care (01) ==
LOC: EN 02-19 11:12
PROVIDERS: PCP Family Medicine; Referring Provider Family Medicine; Visit Provider Internal Medicine Gastroenterology
DX: Z53.29 Procedure and treatment not carried out because of patient's decision for other reasons (principal)
CPT/HCPCS: A4216

== ENCOUNTER → 2024-05-12 | Outpatient (CLI) | payer OTHER, SELFPAY ==
[2024-05-12 16:21] LABS: T4 Free Direct 0.99 ng/dL (0.76-1.46)
== END | disposition home or self-care (01) ==
LOC: BFHLAB 11:07
PROVIDERS: PCP Family Medicine; Referring Provider Family Medicine; Visit Provider Family Medicine
DX: I10 Essential (primary) hypertension (principal)
CPT/HCPCS: 36415; 84439; 84443

== ENCOUNTER 2024-07-21 11:28 | Day surgery (SDC) | payer OTHER, SELFPAY ==
[2024-07-21] VITALS (8 sets, daily range): BP systolic 104–124; BP diastolic 75–95; PULSE 70–88; RESP 16–18; TEMP 36.4–37.1; O2SAT 96–100; BMI 29.7
--- NOTE | 2024-07-21 11:42 | PRE.ANES_ITS ---
ASA Classification* ASA Classification ASA Classification: 2 Assessment & Plan Anesthesia* Anesthesia Assessment Anesthesia Assessment: Discussed sedation and/or anesthesia options, risks, benefits, and alternatives with patient/parents/legal guardian/POA. Questions invited. The patient/parents/legal guardian/POA seems to understand and agrees to proceed with anesthesia plan. Reviewed the physical assessment, medical history, allergy history and patient home medications list prior to surgery/procedure/anesthetic and documented any changes. Performed airway and anesthesia risk assessments. Anesthesia Type Anesthesia Type: MAC Anesthesia Focused Assessment* Airway Assessment Mouth opens: >3 cm Mallampati Score: II Focused Labs Anesthesia Preop lab: CBC WBC 6.7 K/mm3 (4.4-11.0) 11/26/23 09:59 11/26/23 RBC 5.26 M/mm3 (4.6-6.2) 11/26/23 09:59 11/26/23 Hgb 16.0 g/dL (13.0-16.5) 11/26/23 09:59 11/26/23 Hct 46.4 % (40-54) 11/26/23 09:59 11/26/23 Plt Count 302 K/mm3 (150-450) 11/26/23 09:59 11/26/23 CHEMISTRY Potassium 4.4 mmol/L (3.5-5.1) 11/26/23 09:59 11/26/23 Sodium 138 mmol/L (136-145) 11/26/23 09:59 11/26/23 BUN 11 mg/dL (7-18) 11/26/23 09:59 11/26/23 Creatinine 0.80 mg/dL (0.70-1.30) 11/26/23 09:59 11/26/23 Glucose 112 mg/dL (74-106) H 11/26/23 09:59 11/26/23 TSH 1.330 uIU/mL (0.358-3.740) 05/12/24 11:07 0207/01 COAG Pre-Assessment Diagnosis/Proposed Procedure Planned Operative Procedure(s): CSCOPE Anesthesia History Anesthesia History - anesthesiologist/physician: Anesthesia History - anesthesiologist/physician Hx Hospitalization No 07/15/24 10:32 Any Problems With Anesthesia Yes: AWAKENED DURING LAST 07/15/24 10:32 PROCEDURE, THEN AHRD TIME WAKING POST PROCEDURE Cholinesterase deficiency No 07/15/24 10:32 You/Your Family Experience No 07/15/24 10:32 fever (hyperthermia) with Relationship Recent Exposure to Contagious No 02/11/19 12:57 Disease Does patient have nerve No 07/15/24 10:32 stimulator Patient instructed to have device shut off --Does patient have Pacemaker or ICD? When Was Last Pacemaker Check QUESTION #4 FULL TEXT: You/Your Family Experience fever (hyperthermia) with Anesthesia Last Oral Intake Last Oral intake: Last Oral Intake NPO since Meds taken in AM with sips of water? Meds patient instructed to take am of surgery PONV PONV - anesthesiologist/physician: PONV - anesthesiologist/physician Female No 07/15/24 10:32 HX of Motion Sickness No 07/15/24 10:32 HX of N/V After Surgery No 07/15/24 10:32 Non-Smoker Yes 07/15/24 10:32 Duration of Surgery greater No 07/15/24 10:32 than 60 minutes Number of Risk Factors 1 07/15/24 10:32 PONV Score Low Risk 07/15/24 10:32 Height & Weight Height & Weight: Anesthesia: Height & Weight Height 5 ft 9 in 04/01/22 13:06 Respiratory Assessment Respiratory Assessment - anesthesiologist/physician: Respiratory Tract Infection Hx - anesthesiologist/physician Hx Respiratory Tract Infection No 07/15/24 10:32 STOP Sleep Apnea STOP Sleep Apnea - anesthesiologist/physician: STOP Sleep Apnea - anesthesiologist/physician Hx Hypertension Yes: controlled with med 07/15/24 10:32 Hx Sleep Apnea No 07/15/24 10:32 CPAP No 07/15/24 10:32 BIPAP Do you snore loudly (louder No 07/15/24 10:32 than talking or can be heard Do you often feel tired/ No 07/15/24 10:32 fatigued/ sleepy during daytime? Has anyone observed you stop No 07/15/24 10:32 breathing during sleep? STOP Results Negative 07/15/24 10:32 QUESTION #5 FULL TEXT : Do you snore loudly (louder than talking or can be heard through closed doors)? 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 Specify any problems Hx of Preganancy in last 3 N/A 07/15/24 10:32 Months Nurse Filling Out Transfusion NBUCHER 07/15/24 10:32 & Questions: Date: 07/15/24 07/15/24 10:32 Time: 10:33 07/15/24 10:32 Patient unable to answer at this time (ie. confused, unrespo /Reproduction History /Reproductive History - anesthesiologist/physician: /Reproductive Hx- anesthesiologist/physician Hx Now Gestational Age (in weeks): EDC: Hx Hx Para Hx Section SAB PFSH Medical History Wears glasses Kidney stones Back pain Non-smoker History of echocardiogram History of stress test Cardiology follow-up encounter Migraine Obesity Hyperlipidemia Varicose veins of both lower extremities Essential hypertension Chronic pansinusitis Inverted papilloma Nasal bone fracture Nasal septal deviation Hypertrophy of inferior nasal turbinate Nasal congestion Other chronic sinusitis Home Medications ?Medication ?Instructions ?Recorded ?Last Taken ?Type lisinopril 10 1 ea PO DAILY 06/18/1803/04 06:15 History mg-hydrochlorothiazide 12.5 mg tablet ibuprofen 400 mg tablet 400 mg PO 4X/DAY PRN pain Unknown History tadalafil 5 mg tablet 5 mg PO DAILY 05/05/24 Unkno wn History Allergy/AdvReac Type Severity Reaction Status Date / Time No Known Allergies Allergy Verified 07/15/24 10:31 Family History Father Colon cancer Other Alcoholism Diabetes Hypertension Surgical History History of sinus surgery (~02/2019) Social History Smoking Status: Former smoker Tobacco: How many years used: 5 how long ago did patient quit smokin alcohol intake: never Review of Systems (Anesthesia) ROS Narrative System reviewed and no additional complaints, except as documented.
--- NOTE | 2024-07-21 12:45 | COLBX_PTH ---
PATIENT: AV PEREZ LOC: EN U#:[id number] AGE/SX: 43/M ROOM: RE07/21/[address]: Dr. Usama Gomes DO : 1980 BED: DIS: 07/21/2024 SPEC #: [id number] RECD: 07/22/24 09:10 STATUS: LEA BENIGNO #: [id number] AMALIA: 07/21/24 12:[address]: Usama Gomes DEPT: SURGICAL PATHOLOGY RECD BY: Jerry Johnson ENTERED: 07/22/24 09:11 SP TYPE: COLON BX BILLIE DR: Dr. Nica Mcgovern MD Tissues: A - COLON BIOPSY B - Rectum, NOS Procedures: Surgery Specimen Level IV HEADER OPERATION: Colonoscopy with biopsy PRE-OP DIAGNOSIS: Family history of colon cancer, change in bowel habit TISSUE SUBMITTED: A- Splenic flexure polyp biopsy, B- Rectal polyp biopsy MICROSCOPIC DIAGNOSIS A. Colon, splenic flexure, polyp, biopsy: * Tubular adenoma. B. Rectum, polyp, biopsy: * Hyperplastic polyp. MICROSCOPIC DESCRIPTION Slides are reviewed. GROSS DESCRIPTION A. Received in fixative is one container labeled with the patient's name and designated Splenic flexure polyp biopsy. The specimen consists of multiple irregular fragments of light lehman soft tissue that in aggregate measure 1.3 x 0.4 x 0.2 cm. The specimen is totally submitted in one cassette. B. Received in fixative is one container labeled with the patient's name and designated Rectal polyp biopsy. The specimen consists of one irregular fragment of light lehman soft tissue that measures 0.4 x 0.3 x 0.2 cm. The specimen is totally submitted in one cassette. 07/22/2024 CPT:08433w8
--- NOTE | 2024-07-21 12:58 | PCM.HP.STD ---
HPI - General General Date of Admission: 07/21/24 Date of Service: 07/21/24 Chief Complaint: Family history of colon cancer HPI Narrative HPI HPI Chief Complaint: Pain in abdomen with change in bowel habits and family history of colon cancer - Dad with colon CA at 52y/o - Maternal GF with colon CA - denies any EtOH - IBU 800mg every 6-8 hours post bicep tear January 2024 - at least 3 days a week - denies any weight loss - does not look at stool - not certain if he had any blood - lower abdominal discomfort - reports having a feeling of rectal discomfort - intermittent - can be a sharp rectal pain - rectal pain can be severe - but not associated with a BM - denies any heart or lung disease - Feeling down and out - pulled out his back 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 - also seeing urologist for other issues - then while working out tore his bicep - feels like things just keep going wrong - denies any HB or indigestion [facility] Medical History Wears glasses Kidney stones Back pain Non-smoker History of echocardiogram History of stress test Cardiology follow-up encounter Migraine Obesity Hyperlipidemia Varicose veins of both lower extremities Essential hypertension Chronic pansinusitis Inverted papilloma Nasal bone fracture Nasal septal deviation Hypertrophy of inferior nasal turbinate Nasal congestion Other chronic sinusitis Home Medications ?Medication ?Instructions ?Recorded ?Last Taken ?Type lisinopril 10 1 ea PO DAILY 06/18/18 03/04/19 06:15 History mg-hydrochlorothiazide 12.5 mg tablet ibuprofen 400 mg tablet 400 mg PO 4X/DAY PRN pain 05/05/24 Unknown History tadalafil 5 mg tablet 5 mg PO DAILY 05/05/24 Unknown History Allergy/AdvReac Type Severity Reaction Status Date / Time No Known Allergies Allergy Verified 07/21/24 11:55 Family History Father Colon cancer Other Alcoholism Diabetes Hypertension Surgical History History of sinus surgery (~02/2019) Social History Smoking Status: Former smoker Tobacco: How many years used: 5 how long ago did patient quit smokin alcohol intake: never ROS Constitutional Constitutional: Denies fatigue, fever(s), poor appetite, weight gain or weight loss Gastrointestinal Gastrointestinal: Denies belching, bloating, change in bowel habits, change in stool character, chewing difficulty, coffee ground emesis, constipation, cramping, diarrhea, dyspepsia, dysphagia, early satiety, excessive flatus, fecal incontinence, heartburn, hematemesis, hematochezia, hemorrhoids, loose stools, melena, nausea, odynophagia, rectal bleeding, tenesmus, vomiting or weight changes Vital Signs Vital Signs Vital Signs: 07/21/24 12:01 07/21/24 12:01 Temperature 98.8 F Temperature Source Temporal Pulse Rate 88 Respiratory Rate 16 Respiratory Pattern Normal Blood Pressure 124/95 H Blood Pressure Mean 104 Blood Pressure Source Monitor Blood Pressure Position Sitting Blood Pressure Location Left Arm Pulse Ox 100 Oxygen Delivery Method Room Air Weight Weight: 201 lb 8.04 oz Body Mass Index (BMI) 29.7 Physical Exam Const alert, oriented x3, no apparent distress and healthy appearing General Appearance: cooperative GI normal to inspection, nondistended, normoactive bowel sounds, soft to palpation, non-tender and non-distended Percussion: normal to percussion Rectal Exam: deferred Assessment & Plan Assessment/Plan (1) Family history of colon cancer: (2) Change in bowel habit: PLAN: Assessment and Plan Assessment and Plan (1) Change in bowel habit: Status: Acute (2) Family history of colon cancer: Status: Acute Plan 43y/o male presents for consultation with a family history of colon cancer. CBC was unremarkable 11/26/2023. He reports bowel habits changed over the past few weeks, but also reports some dietary changes. He reports stools are formed but soft. C/O occasional lower abdominal discomfort and sharp rectal pain. I have recommended a high fiber diet and scheduled him for a colonoscopy. Plan Details Follow Up:
--- NOTE | 2024-07-21 13:42 | PCM.POST.ANE ---
Anesthesia: Postop Eval I Current Vital Signs Temperature: 97.5 F Pulse Rate: 84 Blood Pressure: 114/81 Respiratory Rate: 16 Pulse Ox: 97 Oxygen Delivery Method: Room Air Assessment Airway patent: Yes Spontaneous unlabored respirations: Yes Mental status: Asleep nausea: No Vomiting: No Anesthesia Complication: No Fluid Hydration Crystalloid volume administer (ml): 60 Total IV fluid infused: 60 Progress Note Anesthesia document: Postop Eval 1 completed: Yes
--- NOTE | 2024-07-21 13:43 | OP.CCLET_ITS ---
07/21/2024 Nica Mcgovern [place] [id number] [place] [address] Re : Colonoscopy procedure for Jose Manzoer Dear Dr. Mcgovern This procedure was performed on Sunday, July 21, 2024. My impressions and recommendations are as follows: Impressions : - Diverticulosis in the recto-sigmoid colon. - Two 8 mm polyps in the rectum and at the splenic flexure, removed with a jumbo cold forceps. Resected and retrieved. - The examination was otherwise normal on direct and retroflexion views. Recommendations : - Discharge patient to home. - Resume previous diet. - Continue present medications. - Await pathology results. - Repeat colonoscopy in 5 years for surveillance. My findings are described in the full procedure note, which is enclosed. If I can be of further assistance, please feel free to contact me at . Sincerely, Usama Friend, 07/21/2024 1:42:53 PM This report has been signed electronically.
--- NOTE | 2024-07-21 13:43 | OP.COLON_ITS ---
Patient Name: Jose Avelar Procedure Date: 07/21/2024 1:06 PM Date of : 1980 Age: 43 Procedure: Colonoscopy Indications: Screening in patient at increased risk: Family history of 1st-degree relative with colorectal cancer Providers: Usama Gomes DO Referring MD: Nica Mcgovern Medicines: Monitored Anesthesia Care Patient Profile: This is a 43 year old male. Refer to note in patient chart for documentation of history and physical. Last Colonoscopy: none. The patient's first colonoscopy is today. Complications: No immediate complications. Procedure: Pre-Anesthesia Assessment: - Prior to the procedure, a History and Physical was performed, and patient medications and allergies were reviewed. The patient is competent. The risks and benefits of the procedure and the sedation options and risks were discussed with the patient. All questions were answered and informed consent was obtained. Patient identification and proposed procedure were verified by the physician in the pre-procedure area. Mental Status Examination: alert and oriented. Airway Examination: normal oropharyngeal airway and neck mobility. Respiratory Examination: clear to auscultation. CV Examination: normal. Prophylactic Antibiotics: The patient does not require prophylactic antibiotics. Prior Anticoagulants: The patient has taken no anticoagulant or antiplatelet agents except for NSAID medication. ASA Grade Assessment: II - A patient with mild systemic disease. After reviewing the risks and benefits, the patient was deemed in satisfactory condition to undergo the procedure. The anesthesia plan was to use monitored anesthesia care (MAC). Immediately prior to administration of medications, the patient was re-assessed for adequacy to receive sedatives. The heart rate, respiratory rate, oxygen saturations, blood pressure, adequacy of pulmonary ventilation, and response to care were monitored throughout the procedure. The physical status of the patient was re-assessed after the procedure. After I obtained informed consent, the scope was passed under direct vision. Throughout the procedure, the patient's blood pressure, pulse, and oxygen saturations were monitored continuously. The Colonoscope was introduced through the anus and advanced to the terminal ileum. The colonoscopy was performed without difficulty. The patient tolerated the procedure well. The quality of the bowel preparation was adequate. The terminal ileum, ileocecal valve, appendiceal orifice, and rectum were photographed. Scope In: 1:21:43 PM Scope Withdrawal Time 0 hours 9 minutes 49 seconds Scope Out: 1:33:56 PM Total Procedure Duration Time 0 hours 12 minutes 13 seconds Findings: The perianal and digital rectal examinations were normal. A few small-mouthed diverticula were found in the recto-sigmoid colon. Two sessile polyps were found in the rectum and splenic flexure. The polyps were 8 mm in size. These polyps were removed with a jumbo cold forceps. Resection and retrieval were complete. Verification of patient identification for the specimen was done. Estimated blood loss was minimal. The exam was otherwise without abnormality on direct and retroflexion views. Impression: - Diverticulosis in the recto-sigmoid colon. - Two 8 mm polyps in the rectum and at the splenic flexure, removed with a jumbo cold forceps. Resected and retrieved. - The examination was otherwise normal on direct and retroflexion views. Recommendation: - Discharge patient to home. - Resume previous diet. - Continue present medications. - Await pathology results. - Repeat colonoscopy in 5 years for surveillance. Procedure Code(s): --- Professional --- 23718, Colonoscopy, flexible; with biopsy, single or multiple CPT copyright 2021 [employer]. All rights reserved. The codes documented in this report are preliminary and upon professional fee coder review may be revised to meet current compliance requirements. Usama Gomes DO 07/21/2024 1:42:53 PM This report has been signed electronically. Number of Addenda: 0 Note Initiated On: 07/21/2024 1:06 PM
--- NOTE | 2024-07-21 14:22 | PCM.POSTANE2 ---
Anesthesia Postop Eval I Sum Postop Eval Completion status Anesthesia document: Postop Eval 1 completed: Yes Anesthesia Postop Eval I Summary Anesthesia Postop Eval I Summary: Anesthesia Postop Eval I: Assessment Summary Airway patent Yes 07/21/24 13:43 [email or web address] Spontaneous unlabored Yes 07/21/24 13:43 [email or web address] respirations Mental status Asleep 07/21/24 13:43 [email or web address] nausea No 07/21/24 13:43 [email or web address] Vomiting No 07/21/24 13:43 [email or web address] Anesthesia Postop Eval I: Fluid Summary Crystalloid volume administer 60 07/21/24 13:43 [email or web address] (ml) Colloids volume administered ( ml) Blood Product volume administered (ml) Total IV fluid infused 60 07/21/24 13:43 [email or web address] Anesthesia Postop Eval I: Summary Notes Anesthesia Complication No 07/21/24 13:43 [email or web address] Anesthesia Complication Comment: Post-operative progress note Anesthesia: Postop Eval II Evaluation Mental status: Awake Pain Level: 0 nausea: No Vomiting: No
== END 2024-07-21 14:34 | disposition home or self-care (01) ==
LOC: EN 11:29 → AC 11:45
PROVIDERS: PCP Family Medicine; Referring Provider Family Medicine; Visit Provider Internal Medicine Gastroenterology
PROC: 0DJD8ZZ Inspection of Lower Intestinal Tract, Via Natural or Artificial Opening Endoscopic (ICD-10-PCS; CPT 45378; principal; 2024-07-21 12:40)
DX: Z12.11 Encounter for screening for malignant neoplasm of colon (principal); D12.3 Benign neoplasm of transverse colon; I10 Essential (primary) hypertension; Z87.891 Personal history of nicotine dependence; E78.5 Hyperlipidemia, unspecified; Z80.0 Family history of malignant neoplasm of digestive organs; K62.1 Rectal polyp; K57.90 Diverticulosis of intestine, part unspecified, without perforation or abscess without bleeding; R19.5 Other fecal abnormalities; Z79.899 Other long term (current) drug therapy
CPT/HCPCS: 45380; 88305; A4216; J2405

== ENCOUNTER → 2024-07-22 | Outpatient (CLI) | payer OTHER, SELFPAY ==
--- NOTE | 2024-07-22 11:01 | CT_ITS ---
PROCEDURE: PELVIS WITHOUT IV CONTRAST 07/22/2024 REASON FOR EXAM: SCROTAL VARICES TECHNIQUE: CT pelvis was performed without IV contrast. Multiplanar reformats were generated. One or more dose reduction techniques were used (e.g., Automated exposure control, adjustment of the mA and/or kV according to patient size, use of iterative reconstruction technique). RADIATION DOSE SUMMARY: CTDlvol: 28.21 mGy DLP: 1085.03 mGycm COMPARISON: None. FINDINGS: Note that evaluation of the pelvic viscera, vasculature, and remaining soft tissues is limited in the absence of IV contrast. Visualized bowel: Unremarkable. Lymph nodes: Unremarkable. Vasculature: Mild calcific atherosclerosis. Peritoneum: Unremarkable. Bladder: Borderline mild bladder wall thickening versus underdistention. Reproductive Organs: Grossly unremarkable noncontrast appearance. Body Wall: Tiny fat containing LEFT larger than RIGHT inguinal and umbilical hernias. Bones: Few punctate sclerotic presumed bone islands in the absence of known malignancy.. CT/Pelvis without IV Contrast IMPRESSION: 1. Borderline mild bladder wall thickening versus underdistention. Correlate f or cystitis. 2. Otherwise, no acute or suspicious noncontrast findings noting that the scrot um and contents would be optimally evaluated sonographically. 3. Additional description as above. Reading Location: [facility]
== END | disposition home or self-care (01) ==
LOC: CT 10:58
PROVIDERS: PCP Family Medicine; Referring Provider Urology; Visit Provider Urology
DX: I86.1 Scrotal varices (principal)
CPT/HCPCS: 72192

== ENCOUNTER → 2024-08-04 | Outpatient (CLI) | payer OTHER, SELFPAY ==
[2024-08-04 10:57] LABS: HIV Nonreactive (Nonreactive); Syphilis Antibodies Nonreactive (Nonreactive)
== END | disposition home or self-care (01) ==
PROVIDERS: PCP Family Medicine; Referring Provider Family Medicine; Visit Provider Family Medicine
DX: Z20.9 Contact with and (suspected) exposure to unspecified communicable disease (principal)
CPT/HCPCS: 36415; 86703; 86780; 87491; 87591

== ENCOUNTER → 2024-10-15 | Outpatient (CLI) | payer OTHER, SELFPAY ==
--- NOTE | 2024-10-15 14:48 | RAD_ITS ---
PROCEDURE: THORACIC SPINE 3 VIEWS 10/15/2024 REASON FOR EXAM: CERVICALGIA TECHNIQUE: THORACIC SPINE 3 VIEWS COMPARISON: None FINDINGS: The vertebral alignment is maintained with no spondylolisthesis visualized. No evidence of vertebral body fracture. Intervertebral disc spaces are normal. No scoliosis seen. Normal paravertebral soft tissue densities noted. RAD/Thoracic Spine 3 Views IMPRESSION: No evidence of thoracic vertebral fracture or spondylolisthesis. Reading [facility]
--- NOTE | 2024-10-15 14:49 | RAD_ITS ---
PROCEDURE: CERV SPINE 4 OR 5 VIEWS 10/15/2024 REASON FOR EXAM: CERVICALGIA TECHNIQUE: CERV SPINE 4 OR 5 VIEWS COMPARISON: None FINDINGS: The vertebral alignment is maintained without evidence of fracture. Bilateral C5-6 and C6-7 foraminal narrowing noted. Straightened cervical lordosis is seen. Reduced C5-6 and C6-7 disc spaces and facet arthropathy, rest Intervertebral disc spaces are normal. C4-5, C5-6 and C6-7 anterior marginal anterior osteophytes are seen. The paraspinal soft tissues appear normal. RAD/Cerv Spine 4 or 5 Views IMPRESSION: C5-6 and C6-7 levels degenerative changes. Straightened cervical lordosis in keeping with muscle spasm. No evidence of cervical vertebral fracture. Reading [facility]
== END | disposition home or self-care (01) ==
LOC: MTRAD 14:47
PROVIDERS: PCP Family Medicine; Referring Provider Nurse Practitioner Family; Visit Provider Nurse Practitioner Family
DX: M54.2 Cervicalgia (principal); R20.2 Paresthesia of skin
CPT/HCPCS: 72050; 72072

== ENCOUNTER → 2025-02-25 | Outpatient (CLI) | payer OTHER, SELFPAY ==
--- NOTE | 2025-02-25 11:14 | NEURO ---
NCS and/or EMG Patient Report Ordering Doctor: Nica Mcgovern DATE OF SERVICE: 02/25/25 Jose presents with complaints of neck pain as well as upper extremity numbness and tingling. Electrodiagnostic findings: Median motor nerve demonstrates normal distal latency, amplitude and conduction velocity bilaterally. Ulnar motor response within normal limits bilaterally. Normal median and ulnar F?waves. Sensory responses are normal. Needle EMG testing was performed in the upper limbs. All muscles tested showed no evidence of denervation with normal motor unit action potentials. Electrodiagnostic impression: This is a normal electrodiagnostic study of the upper limbs. There is no electrodiagnostic evidence for peripheral neuropathy, including carpal tunnel or cubital tunnel syndrome. There is no electrodiagnostic evidence for cervical radiculopathy. Multi Select Codes Neurology Neurology Interp Codes: 55543-48 Musc test done w/n test comp (interp) (2) and 50506-65 Nrv cndj test 13/> studies (interp)
== END | disposition home or self-care (01) ==
LOC: PSN 08:58
PROVIDERS: PCP Family Medicine; Referring Provider Family Medicine; Visit Provider Family Medicine
DX: M54.12 Radiculopathy, cervical region (principal)
CPT/HCPCS: 95886; 95913